=== PATIENT | male | born 1945 | race African-American/Black ===

== ENCOUNTER → 2017-05-07 | Outpatient (CLI) | payer OTHER ==
[~2017-05-07] MED LIST: CARV6.25 PO; LISI10 PO; PHEN100 PO; PHEN60TA PO; TOPI25 PO
[2017-05-07 08:43] LABS: BLOOD, URINE NEG (NEG); GLUCOSE,URINE NEG (NEG); HYALINE CAST, URINE 1 /lpf (RARE); KETONE, URINE NEG (NEG); MUCUS URINE FEW /lpf (OCC); NITRITE,URINE NEG (NEG); SQUAMOUS EPITHELIAL CELL URINE <1 /hpf (0-5); URINE COLOR YELLOW (YELLW/STRAW)
[2017-05-07 08:51] LABS: AUTOMATED NEUTROPHIL # 2.9 TH/MM3 (1.8-7.7); BASOPHIL % 0.6 % (0.0-2.0); EOSINOPHIL # 0.1 TH/MM3 (0-0.4); EOSINOPHIL % 2.5 % (0.0-4.0); HEMATOCRIT 39.3 % (39.0-51.0); HEMO FLAGS DIFF FINAL; LYMPH % 34.3 % (9.0-44.0); LYMPHOCYTE # 1.9 TH/MM3 (1.0-4.8); MEAN CELL VOLUME 90.9 FL (80.0-100.0); MEAN CORPUSCULAR HEMOGLOBIN 30.1 PG (27.0-34.0); MEAN CORPUSCULAR HGB CONC 33.1 % (32.0-36.0); MONO % 10.4 % (0.0-8.0); NEUT % 52.2 % (16.0-70.0); PLATELET COUNT 165 TH/MM3 (150-450); RED BLOOD COUNT 4.32 MIL/MM3 (4.50-5.90); RED CELL DISTRIBUTION WIDTH 14.6 % (11.6-17.2); WHITE BLOOD COUNT 5.6 TH/MM3 (4.0-11.0)
[2017-05-07 09:21] LABS: ANION GAP 7 MEQ/L (5-15); AST (GOT) 13 U/L (15-37); BICARBONATE 25.8 MEQ/L (21.0-32.0); BLOOD UREA NITROGEN 14 MG/DL (7-18); CHLORIDE 106 MEQ/L (98-107); GLOMERULAR FILTRATION RATE 76 ML/MIN (>89); GLUCOSE,FASTING 151 MG/DL (74-99); POTASSIUM 4.2 MEQ/L (3.5-5.1); SODIUM (NA) 139 MEQ/L (136-145)
[2017-05-07 09:31] LABS: ALKALINE PHOSPHATASE 82 U/L (45-117); ALT (GPT) 20 U/L (12-78); HDL CHOLESTEROL 61.1 MG/DL (40.0-60.0); LDL CHOLESTEROL 124 MG/DL (0-99); THYROXINE (T4) 7.4 MCG/DL (4.5-12.1); TOTAL BILIRUBIN ADULT 0.2 MG/DL (0.2-1.0)
== END ==
LOC: CLAB 08:06
PROVIDERS: ATTEND Internal Medicine
DX: I10 Essential (primary) hypertension (principal)
CPT/HCPCS: 36415; 80053; 80061; 80185; 81001; 84436; 84443; 85025

== ENCOUNTER → 2017-05-19 | Outpatient (CLI) | payer OTHER | LOC: CLAB 08:25 | PROVIDERS: ATTEND Internal Medicine | DX: R56.9 Unspecified convulsions (principal) | CPT/HCPCS: 36415; 80185 ==

== ENCOUNTER → 2017-06-05 | Outpatient (CLI) | payer OTHER ==
[2017-06-05 09:29] LABS: ALKALINE PHOSPHATASE 83 U/L (45-117); ALT (GPT) 23 U/L (12-78); PHENOBARBITAL LESS THAN 2.1 MCG/ML (15.0-40.0); TOTAL BILIRUBIN ADULT 0.2 MG/DL (0.2-1.0)
[2017-06-05 09:41] LABS: ANION GAP 8 MEQ/L (5-15); AST (GOT) 19 U/L (15-37); BICARBONATE 23.3 MEQ/L (21.0-32.0); BLOOD UREA NITROGEN 12 MG/DL (7-18); CHLORIDE 108 MEQ/L (98-107); GLOMERULAR FILTRATION RATE 79 ML/MIN (>89); GLUCOSE,FASTING 115 MG/DL (74-99); POTASSIUM 4.1 MEQ/L (3.5-5.1); SODIUM (NA) 139 MEQ/L (136-145)
== END ==
LOC: CLAB 07:56
PROVIDERS: ATTEND Psychiatry & Neurology Neurology
DX: Z79.891 Long term (current) use of opiate analgesic (principal); Z51.81 Encounter for therapeutic drug level monitoring
CPT/HCPCS: 36415; 80053; 80184; 80185; 82607; 82746

== ENCOUNTER 2018-10-27 09:34 | Inpatient (IN) ==
--- NOTE | 2018-10-27 09:59 | CT ---
EXAM DATE: 10/27/2018 9:52 AM EST AGE/SEX: 73 years / Male INDICATIONS: Stroke alert. Receptive aphasia. CLINICAL DATA: This is the patient's initial encounter. Patient reports that signs and symptoms have been present for 1 day and indicates a pain score of 0/10. MEDICAL/SURGICAL HISTORY: Seizures. Aneurysm, intracranial. . Aneurysm clip. RADIATION DOSE: 56.39 CTDI (mGy) COMPARISON: No prior exams available for comparison. TECHNIQUE: CT of the head without contrast. Using automated exposure control and adjustment of the mA and/or kV according to patient size, radiation dose was kept as low as reasonably achievable to ob tain optimal diagnostic quality images. DICOM format image data is available electronically for revi ew and comparison. FINDINGS: There has been previous left parieto-occipital craniotomy with clips or coils noted along the left pa ramedian tentorial edge region. There is some left occipital encephalomalacia area in there is some f ocal hypodensity in the anterior right frontal centrum semiovale which may relate to previous ventric ulostomy tract. There is no evidence of intracranial hemorrhage or mass. There is nothing to suggest acute infarction. The extracranial structures are otherwise unremarkable. CONCLUSION: No definite acute intracranial findings. Report was called by [Yuni Desouza at 0911 Electronically signed by: Brendan Morrissey MD 10/27/2018 9:58 AM EST
--- NOTE | 2018-10-27 10:01 | ED ---
HPI General Chief Complaint: Stroke Alert Stated Complaint: Stroke Alert Time Seen by Provider: 10/27/18 09:40 Source: patient Mode of arrival: ambulatory Limitations: no limitations History of Present Illness HPI Narrative: The patient is a 73-year-old -Thai male who presents to the emergency department via EMS as a possible stroke alert. The patient apparently was at [employer] earlier today eating when he suddenly developed confusion, altered mental status, and appeared to have difficulty ambulating. EMS called a stroke alert in the field. Upon arrival the patient was awake, alert, and oriented. The patient denied any complaints including weakness or numbness. The patient appeared to have slight difficulty comprehending commands , but his stroke scale was 0. The patient does have a previous history of previous aneurysm clipping. The patient denies any headache, chest pain, shortness of breath, nausea, vomiting, or abdominal pain. The patient denies any difficulty with his speech and denies any weakness or numbness of the upper or lower extremities. Patient does note a history of seizures for which he takes Dilantin. Onset (ago): minute(s) Timing confirmed by: other Location: Reports altered History of same: Yes Severity: moderate Quality: Reports weak Relieving factors: none Exacerbating factors: none Context: Reports sudden onset On Anticoagulants: No Associated symptoms: Reports confusion and weakness Treatments Prior to Arrival: Reports none Related Data Home Medications Medication Instructions Recorded Confirmed phenytoin sodium extended 240 mg PO BID 10/27/18 10/27/18 Allergies Allergy/AdvReac Type Severity Reaction Status Date / Time MRI PRECAUTION AdvReac Unknown ANEURYSM Uncoded 10/20/15 14:53 CLIP Review of Systems ROS: all other systems reviewed are negative [facility] Medical History Medical History Seizure (Acute) Surgical History Surgical History History of back surgery (Acute) Social History Social History Second Hand Smoke Exposure: No Smoking Status: Never smoker How Often Do You Have a Drink Containing Alcohol: Never Recent Travel in [facility] within the Last 8 Weeks: No Recent Out of Country Travel within the Last 8 Weeks: No Exam Narrative Exam Narrative: GENERAL: Awake, alert, pleasant 73-year-old male who appears his stated age and is in no acute respiratory distress. SKIN: Focused skin assessment warm/dry. HEAD: Atraumatic. Normocephalic. EYES: Pupils equal and round. 3 mm bilateral and reactive. EOMs are intact. Visual koch are symmetric ENT: No nasal bleeding or discharge. Mucous membranes pink and moist. NECK: Trachea midline. No JVD. CARDIOVASCULAR: Regular rate and rhythm. No murmur appreciated. RESPIRATORY: No accessory muscle use. Clear to auscultation. Breath sounds equal bilaterally. GASTROINTESTINAL: Abdomen soft, non-tender, nondistended. MUSCULOSKELETAL: No obvious deformities. No clubbing. No cyanosis. No edema. NEUROLOGICAL: Awake and alert. No obvious cranial nerve deficits. Motor grossly within normal limits. Normal speech. Patient is oriented to person and place. No dysarthria noted. Some commands had to be repeated for patient to understand, however, he was nonfocal on exam. There is no drift of the upper or lower extremities. Finger to nose is normal. Heel to marlow was normal. He was able to tell me his name, date of , and current location. Sensation was symmetric on the face, arms, and legs. Smile was symmetric. Tongue was midline. Visual koch are symmetric. PSYCHIATRIC: Appropriate mood and affect; insight and judgment normal. Course Initial Documented Vital Signs Temperature 98.5 F 10/27/18 09:38 Pulse Rate 87 10/27/18 09:38 Respiratory Rate 16 10/27/18 09:38 Blood Pressure 228/105 H 10/27/18 09:38 Pulse Oximetry 94 L 10/27/18 09:38 Last Documented Vital Signs Temperature 98.5 F 10/27/18 09:38 Pulse Rate 98 H 10/27/18 13:00 Respiratory Rate 18 10/27/18 13:00 Blood Pressure 240/104 H 10/27/18 13:00 Pulse Oximetry 99 10/27/18 13:00 Critical Care Time Critical Care Time: Yes Total Critical Care Time: 40 Attestation: Aggregate critical care time was 40 minutes. Time to perform other separately billable procedures was not included in the critical care time. My time did not include minutes spent treating any other patients simultaneously or on activities that did not directly contribute to the patient's treatment. The services I provided to this patient were to treat and/or prevent clinically significant deterioration that could result in: Anoxia, hypoxia, seizure, status epilepticus, CVA, intracranial hemorrhage. I provided critical care services requiring my management, as noted below: Chart data review, documentation time, medication orders and management, vital sign assessments/reviewing monitor data, ordering and reviewing lab tests, ordering and interpreting/reviewing x-rays and diagnostic studies, care of the patient and discussion of the patient with the admitting physicians. NIH Stroke Scale NIH Stroke Scale Level of Consciousness: 0-Alert Orientation Questions: 0-Answers both correct Responds to Commands: 0-Both tasks correct Gaze Eye Movement: 0-Horizontal movement WNL Visual Koch: 0-No visual field defect Facial Movement: 0-Normal Motor Functions Arm LEFT: 0-No drift Motor Functions Arm RIGHT: 0-No drift Motor Functions Leg LEFT: 0-No drift Motor Functions Leg RIGHT: 0-No drift Limb Ataxia: 0-No ataxia Sensory Loss: 0-No sensory loss Best Language: 0-Normal Articulation: 0-Normal Extinction or Inattention Sensory: 0-Absent Total: 0 Medical Decision Making MDM Narrative Medical decision making narrative: IV was established, labs are drawn and sent, and the patient was placed on cardiac telemetry monitoring and continuous pulse oximetry monitoring. EKG was ordered and are pretty. The patient was called a stroke alert in the field, therefore, a stroke alert was called. Patient went to CT, reveals old probable aneurysm clipping, no acute findings. The patient stroke scale is 0, he appears to have slight decrease in comprehension of commands, however, when repeated he is able to follow commands and is nonfocal on exam. I do not believe the patient is a candidate for TPA. The patient's blood pressure was elevated with a systolic in the 220s and a diastolic just greater than 100, may be hypertensive urgency/emergency versus Dilantin toxicity versus delirium. The patient was administered Vasotec intravenously. Dilantin level was sent to lab. However, the patient pulled out his IV and nursing staff was unable to obtain the blood work. Vascular access was called to obtain IV access. At 1:30 PM the patient had a tonic-clonic seizure that lasted approximately 60 seconds and then self resolved. The patient's blood pressure was elevated, Cardene was ordered, I had a discussion with the patient regarding admission. Patient appears to have hypertensive encephalopathy with secondary seizure. The patient appear to have another seizure at 3 PM. The patient became tachycardic, had an episode of tonic-clonic activity, then an episode of confusion afterwards where he was nonverbal. This was witnessed by myself as well as the neurologist, Dr. Garcia. The patient's Dilantin level was 10, therefore, the patient was administered fosphenytoin 1 g intravenously. Medical Screen Exam Complete: Yes Emergency Medical Condition: Yes Differential Diagnosis Differential Diagnosis: Differential diagnosis includes CVA, TIA, hypertensive urgency, hypertensive emergency, phenytoin toxicity, hyponatremia, delirium. Lab Data Lab results reviewed: Yes I reviewed the patient's lab results. Result diagrams: 10/27/18 13:44 10/27/18 14:19 Lab Results 10/27/18 10/27/18 10/27/18 Range/Units 09:44 10:42 10:42 WBC (4.0-11.0) th/mm3 RBC (4.50-5.90) mil/mm3 Hgb (13.0-17.0) gm/dL Hct (39.0-51.0) % MCV (80.0-100.0) fL MCH (27.0-34.0) pg MCHC (32.0-36.0) % RDW (11.6-17.2) % Plt Count (150-450) th/mm3 MPV (7.0-11.0) fL WBC Differential Seg Neuts % (Manual) (16-70) % Band Neuts % (Manual) (0-6) % Lymphocytes % (Manual) (9-44) % Monocytes % (Manual) (0-8) % Abs Neuts (Manual) (1.8-7.7) th/mm3 Differential Comment Platelet Estimate (Normal) Platelet Morphology (Normal) PT (9.8-11.6) sec INR Ratio APTT (23.4-31.7) sec Sodium (136-145) meq/L Potassium (3.5-5.1) meq/L Chloride (98-107) meq/L Carbon Dioxide (21.0-32.0) meq/L Anion Gap (5-15) meq/L BUN (7-18) mg/dL Creatinine (0.60-1.30) mg/dL Estimated GFR (>89) mL/min POC Glucose 118 H (68-110) mg/dl Random Glucose (74-106) mg/dL Calcium (8.5-10.1) mg/dL Total Bilirubin (0.2-1.0) mg/dL AST (15-37) U/L ALT (12-78) U/L Alkaline Phosphatase (45-117) U/L Total Creatine Kinase (39-308) U/L Troponin I (0.02-0.05) ng/mL Total Protein (6.4-8.2) g/dL Albumin (3.4-5.0) g/dL Urine Color Straw (Yellw/Straw) Urine Clarity Hazy H (Clear) Urine pH 7.0 (5.0-8.5) Ur Specific [place] 1.009 (1.002-1.035) Urine Protein Negative (Neg-Trace) mg/dL Urine Glucose (UA) Negative (Negative) mg/dL Urine Ketones Negative (Negative) mg/dL Urine Occult Blood Negative (Negative) Urine Nitrate Negative (Negative) Urine Bilirubin Negative (Negative) Urine Urobilinogen Less than 2 (Less than 2) mg/dL Ur Leukocyte Esterase Negative (Negative) Urine RBC 1 (0-3) /hpf Ur Squamous Epith Cells <1 (0-5) /hpf Hyaline Casts 1 (0-3) /lpf Micro UA Comment Cath-culture not ind Ur Microscopic Review Not Reportable Urine Culture Comments Cath-cult not ind Urine Opiates Screen Neg (Neg) Ur Barbiturates Screen Neg (Neg) Phenytoin (10.0-20.0) mcg/mL Ur Amphetamines Screen Neg (Neg) U Benzodiazepines Scrn Neg (Neg) Urine Cocaine Screen Neg (Neg) U Cannabinoids Screen Neg (Neg) Blood Type Antibody Screen 10/27/18 10/27/18 10/27/18 Range/Units 11:13 13:44 13:44 WBC 8.8 (4.0-11.0) th/mm3 RBC 4.00 L (4.50-5.90) mil/mm3 Hgb 13.4 (13.0-17.0) gm/dL Hct 37.3 L (39.0-51.0) % MCV 93.1 (80.0-100.0) fL MCH 33.5 (27.0-34.0) pg MCHC 36.0 (32.0-36.0) % RDW 14.8 (11.6-17.2) % Plt Count 168 (150-450) th/mm3 MPV 6.7 L (7.0-11.0) fL WBC Differential Manual diff final Seg Neuts % (Manual) 77 H (16-70) % Band Neuts % (Manual) 1 (0-6) % Lymphocytes % (Manual) 15 (9-44) % Monocytes % (Manual) 7 (0-8) % Abs Neuts (Manual) 6.9 (1.8-7.7) th/mm3 Differential Comment . Platelet Estimate Normal (Normal) Platelet Morphology Normal (Normal) PT 12.6 H (9.8-11.6) sec INR 1.2 Ratio APTT 31.0 (23.4-31.7) sec Sodium 133 L (136-145) meq/L Potassium 4.4 (3.5-5.1) meq/L Chloride 105 (98-107) meq/L Carbon Dioxide 21.1 (21.0-32.0) meq/L Anion Gap 7 (5-15) meq/L BUN 14 (7-18) mg/dL Creatinine 1.07 (0.60-1.30) mg/dL Estimated GFR 82 L (>89) mL/min POC Glucose (68-110) mg/dl Random Glucose 135 H (74-106) mg/dL Calcium 8.8 (8.5-10.1) mg/dL Total Bilirubin 0.3 (0.2-1.0) mg/dL AST 19 (15-37) U/L ALT 26 (12-78) U/L Alkaline Phosphatase 82 (45-117) U/L Total Creatine Kinase 254 (39-308) U/L Troponin I Less than 0.02 L (0.02-0.05) ng/mL Total Protein 7.6 (6.4-8.2) g/dL Albumin 3.7 (3.4-5.0) g/dL Urine Color (Yellw/Straw) Urine Clarity (Clear) Urine pH (5.0-8.5) Ur Specific [place] (1.002-1.035) Urine Protein (Neg-Trace) mg/dL Urine Glucose (UA) (Negative) mg/dL Urine Ketones (Negative) mg/dL Urine Occult Blood (Negative) Urine Nitrate (Negative) Urine Bilirubin (Negative) Urine Urobilinogen (Less than 2) mg/dL Ur Leukocyte Esterase (Negative) Urine RBC (0-3) /hpf Ur Squamous Epith Cells (0-5) /hpf Hyaline Casts (0-3) /lpf Micro UA Comment Ur Microscopic Review Urine Culture Comments Urine Opiates Screen (Neg) Ur Barbiturates Screen (Neg) Phenytoin (10.0-20.0) mcg/mL Ur Amphetamines Screen (Neg) U Benzodiazepines Scrn (Neg) Urine Cocaine Screen (Neg) U Cannabinoids Screen (Neg) Blood Type Antibody Screen 10/27/18 10/27/18 10/27/18 Range/Units 13:58 14:19 14:19 WBC (4.0-11.0) th/mm3 RBC (4.50-5.90) mil/mm3 Hgb (13.0-17.0) gm/dL Hct (39.0-51.0) % MCV (80.0-100.0) fL MCH (27.0-34.0) pg MCHC (32.0-36.0) % RDW (11.6-17.2) % Plt Count (150-450) th/mm3 MPV (7.0-11.0) fL WBC Differential Seg Neuts % (Manual) (16-70) % Band Neuts % (Manual) (0-6) % Lymphocytes % (Manual) (9-44) % Monocytes % (Manual) (0-8) % Abs Neuts (Manual) (1.8-7.7) th/mm3 Differential Comment Platelet Estimate (Normal) Platelet Morphology (Normal) PT (9.8-11.6) sec INR Ratio APTT (23.4-31.7) sec Sodium 134 L (136-145) meq/L Potassium 4.0 (3.5-5.1) meq/L Chloride 103 (98-107) meq/L Carbon Dioxide 27.8 (21.0-32.0) meq/L Anion Gap 3 L (5-15) meq/L BUN 13 (7-18) mg/dL Creatinine 1.08 (0.60-1.30) mg/dL Estimated GFR 81 L (>89) mL/min POC Glucose (68-110) mg/dl Random Glucose 116 H (74-106) mg/dL Calcium 8.5 (8.5-10.1) mg/dL Total Bilirubin 0.3 (0.2-1.0) mg/dL AST 22 (15-37) U/L ALT 23 (12-78) U/L Alkaline Phosphatase 77 (45-117) U/L Total Creatine Kinase 416 H (39-308) U/L Troponin I 0.02 (0.02-0.05) ng/mL Total Protein 7.2 (6.4-8.2) g/dL Albumin 3.5 (3.4-5.0) g/dL Urine Color (Yellw/Straw) Urine Clarity (Clear) Urine pH (5.0-8.5) Ur Specific [place] (1.002-1.035) Urine Protein (Neg-Trace) mg/dL Urine Glucose (UA) (Negative) mg/dL Urine Ketones (Negative) mg/dL Urine Occult Blood (Negative) Urine Nitrate (Negative) Urine Bilirubin (Negative) Urine Urobilinogen (Less than 2) mg/dL Ur Leukocyte Esterase (Negative) Urine RBC (0-3) /hpf Ur Squamous Epith Cells (0-5) /hpf Hyaline Casts (0-3) /lpf Micro UA Comment Ur Microscopic Review Urine Culture Comments Urine Opiates Screen (Neg) Ur Barbiturates Screen (Neg) Phenytoin 10.0 (10.0-20.0) mcg/mL Ur Amphetamines Screen (Neg) U Benzodiazepines Scrn (Neg) Urine Cocaine Screen (Neg) U Cannabinoids Screen (Neg) Blood Type O Positive Antibody Screen Negative Imaging Data Radiologist's impression: Chest X-Ray 10/27/18 09:40 CONCLUSION: Mild chronic appearing interstitial changes stable compared to prior exam. Head CT 10/27/18 09:40 CONCLUSION: No definite acute intracranial findings. Report was called by [Yuni to Lyly at [id number] Discharge Plan Discharge Disposition Patient Disposition: 30 Still Patient Discharge Condition Condition: Serious Discharge Details Diagnosis: Hypertensive encephalopathy, Seizure Physicians Team ED Provider: Tyron Desouza Primary Care Provider: UNKNOWN, Attending Provider: Demarcus Foley Status ED Status: Admitted Patient
--- NOTE | 2018-10-27 10:17 | XR ---
EXAM DATE: 10/27/2018 10:14 AM EST AGE/SEX: 73 years / Male INDICATIONS: Stroke Alert, short of breath CLINICAL DATA: This is the patient's initial encounter. Patient reports that signs and symptoms have been present for 1 day and indicates a pain score of Nonresponsive. MEDICAL/SURGICAL HISTORY: Aneurysm, intracranial. . aneurysm clip COMPAR[place]: [facility] [place] & [place], 11/25/2012. . FINDINGS: The heart is normal in size. There are chronic appearing interstitial changes within the pulmonary pa renchyma. These are similar to the prior dated 11/25/2012. The visualized bony structures demonstrate degenerative changes but are otherwise intact. CONCLUSION: Mild chronic appearing interstitial changes stable compared to prior exam. Electronically signed by: Jesus Bowman MD 10/27/2018 10:16 AM EST
[2018-10-27] MEDS: Sod Chloride 0.9% Inj 1,000 ML IV.CONT SCH ×2 (10:50→20:16)
[2018-10-27 10:56] LABS: Bilirubin,Urine Negative (Negative); Clarity,Urine Hazy (Clear); Color,Urine Straw (Yellw/Straw); Glucose,Urine (UA) Negative (Negative); Hyaline Casts,Urine 1 /lpf (0-3); Leukocyte Esterase,Urine Negative (Negative); Nitrite,Urine Negative (Negative); Specific Gravity,Urine 1.009 (1.002-1.035); Squamous Epithelial Cell,Urine <1 /hpf (0-5)
[2018-10-27 11:10] LABS: Amphetamine Screen,Urine Neg (Neg); Barbiturate Screen,Urine Neg (Neg); Cannabinoid Screen,Urine Neg (Neg); Cocaine Screen,Urine Neg (Neg)
[2018-10-27 11:12] LABS: Opiate Screen,Urine Neg (Neg)
[2018-10-27 12:01] LABS: Alanine Aminotransferase 26 U/L (12-78); Albumin 3.7 g/dL (3.4-5.0); Anion Gap 7 meq/L (5-15); Aspartate Aminotransferase 19 U/L (15-37); Blood Urea Nitrogen 14 mg/dL (7-18); Calcium 8.8 mg/dL (8.5-10.1); Carbon Dioxide 21.1 meq/L (21.0-32.0); Chloride 105 meq/L (98-107); Glomerular Filtration Rate 82 mL/min (>89); Glucose,Random 135 mg/dL (74-106); Potassium 4.4 meq/L (3.5-5.1); Sodium 133 meq/L (136-145)
[2018-10-27 12:04] LABS: Alkaline Phosphatase 82 U/L (45-117); Creatine Kinase 254 U/L (39-308); Total Protein 7.6 g/dL (6.4-8.2)
[2018-10-27] MEDS: niCARdipine Inj 25 MG in Sodium Chlor 0.9% Inj 240 ML IV.CONT PRN ×2 (13:51→22:22)
[2018-10-27 14:13] LABS: INR 1.2 Ratio; Prothrombin Time 12.6 sec (9.8-11.6)
[2018-10-27 14:44] LABS: Lymphocytes 15 % (9-44); Monocytes 7 % (0-8); Platelet Estimate Normal (Normal); Platelet Morphology Normal (Normal)
[2018-10-27 14:53] LABS: Alanine Aminotransferase 23 U/L (12-78); Albumin 3.5 g/dL (3.4-5.0); Anion Gap 3 meq/L (5-15); Aspartate Aminotransferase 22 U/L (15-37); Blood Urea Nitrogen 13 mg/dL (7-18); Calcium 8.5 mg/dL (8.5-10.1); Carbon Dioxide 27.8 meq/L (21.0-32.0); Chloride 103 meq/L (98-107); Glomerular Filtration Rate 81 mL/min (>89); Glucose,Random 116 mg/dL (74-106); Sodium 134 meq/L (136-145)
[2018-10-27 14:55] LABS: Alkaline Phosphatase 77 U/L (45-117); Creatine Kinase 416 U/L (39-308); Total Protein 7.2 g/dL (6.4-8.2); Troponin I 0.02 ng/mL (0.02-0.05)
[2018-10-27] MEDS ORDERED: Bisacodyl 10 MG Supp RECTAL PRN (15:00)
[2018-10-27] MEDS ORDERED: Morphine Sulfate Inj 2 MG/ML Vial IV.PUSH PRN (15:00)
[2018-10-27] MEDS ORDERED: Acetaminophen 325 MG Tablet PO PRN (15:00)
[2018-10-27] MEDS ORDERED: Fosphenytoin Inj 1,000 MGPE in Sodium Chlor 0.9% Inj 50 ML IV.SIG ONE (15:01)
[2018-10-27 15:08] LABS: CKMB Percent 0.4 % (0.0-4.0); Creatine Kinase MB 1.7 ng/mL (0.5-3.6)
[2018-10-27] MEDS ORDERED: Labetalol HCl Inj 100 MG/20 ML Vial IV.PUSH PRN (15:13)
[2018-10-27] MEDS ORDERED: hydrALAZINE HCl Inj 20 MG/ML Vial IV.PUSH PRN (15:14)
--- NOTE | 2018-10-27 15:17 | P.HPCC ---
History of Present Illness Service: Critical care medicine Primary Care Physician: UNKNOWN Chief Complaint: Left-sided weakness/acute hypertensive encephalopathy History of Present Illness: This is a 73-year-old AA male. Date of admission 10/27/2018. 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 Patient is currently on Dilantin 240 mg twice daily. Patient presented to [facility] today from [facility] as a stroke alert. Today, the patient was at [facility] consuming hamburgers when he suddenly developed confusion, altered mental status, and appeared to have difficulty ambulating. EMS called a stroke alert in the field. Upon arrival the patient was awake, alert, and oriented. The patient denied any complaints including weakness or numbness. The patient appeared to have slight difficulty comprehending commands, but his stroke scale was 0. 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 The patient denies any headache, chest pain, shortness of breath, nausea, vomiting, or abdominal pain. The patient denies any difficulty with his speech and denies any weakness or numbness of the upper or lower extremities. Patient does note a history of seizures for which he takes Dilantin. CT brain revealed signs of a left posterior occipital craniotomy with encephalomalacia involving the left occipital region. Encephalomalacia in the left paramedial tentorium. Right frontal region reveals a slight of possible prior ventriculostomy. No signs of acute CVA. Patient was noted to be quite hypertensive with a systolic blood pressure in the 240s. Subjective left-sided which patient had a witnessed seizure in the ED which resolved on its own. Patient is chronically on fosphenytoin level was 10. Patient was started on nicardipine drip and his confusion is improved. NIH score is still 0. Inpatient Certification: I certify that the inpatient services were ordered in accordance with Medicare regulations governing the order. This includes certification that hospital inpatient services are reasonable and necessary and in the case of services not specified as inpatient-only under 42 CFR 419.22(n), that they are appropriately provided as inpatient services in accordance to with the 2-midnight benchmark under 43 CFR 412.3(e) Estimated Total Length of Stay (Days): 3 Plans for Post Hospital Care: Home Review of Systems Constitutional: Denies anorexia, Denies body ache(s), Denies chills Eyes: Denies blind spots, Denies blurry vision, Denies bulging eyes Ears, Nose, Mouth, and Throat: Reports bad breath, Denies abnormal hearing, Denies bleeding gums, Denies change in voice, Denies dry mouth Cardiovascular: Denies chest pain, Denies chest pain at rest, Denies chest pain with activity Respiratory: Denies shortness of breath, Denies shortness of breath with activity Gastrointestinal: Denies abdominal pain Genitourinary: Denies urinary hesitancy Musculoskeletal: Denies abnormal walking, Denies back pain Skin/Breast: Denies bleeding lesions Neurologic: Reports seizure-like activity, Denies abnormal hearing, Denies abnormal movements, Denies memory loss, Denies tingling, Denies tremor(s) Psychiatric: Reports confusion, Denies abnormal sleep pattern, Denies anxiety Endocrine: Denies cold intolerance, Denies excessive sweating Hematologic/Lymphatic: Denies easy bleeding Allergic/Immunologic: Denies GI upset with certain foods PMFSH - History History Provided By: Patient, Labor Relations Consultant / EMT - Medical History Medical History: Medical History (Last Updated 10/27/18 @ 15:11 by Sean Ackerman MD) BMI 32.0-32.9,adult Hypertensive encephalopathy Seizure - Surgical History Surgical History: Surgical History (Last Updated 10/27/18 @ 15:09 by Sean Ackerman MD) History of back surgery History of craniotomy - Family History Family History: Family History (Last Updated 10/27/18 @ 15:10 by Sean Ackerman MD) Other No pertinent family history - Social History I have reviewed the patient's Social History: Yes - Tobacco History Second Hand Smoke Exposure: No Smoking Status: Never smoker - Alcohol History How Often Do You Have a Drink Containing Alcohol: Never - Travel History Recent Travel in the [place] Within the Last 8 Weeks: No Recent Travel Out of the Country Within the Last 8 Weeks: No - Immunization History Tetanus Immunization: Unsure Medications and Allergies Active Medications: Active Medications Acetaminophen (Tylenol) 650 mg PO Q6H PRN PRN Reason: Fever >100f Hydrocodone Bitart/Acetaminophen ([place] 5/325) 1 tab PO Q4H PRN PRN Reason: PAIN SCALE 1 TO 5 Al Hydroxide/Mg Hydroxide (Milk Of Magnesia Liq) 30 ml PO Q12H PRN PRN Reason: Mild Constipation Albuterol (Albuterol Neb (Prn)) 2.5 mg NEB Q2HR NEB PRN PRN Reason: SHORTNESS OF BREATH/WHEEZING Albuterol (Duoneb Neb ([place])) 1 ampul NEB Q4HR NEB GAL[place]O Amlodipine Besylate (Norvasc) 5 mg PO DAILY G[place]ILEO Bisacodyl (Dulcolax Supp) 10 mg RECTAL DAILY PRN PRN Reason: SEVERE CONSITIPATION Chlorhexidine Gluconate (Chlorhexidine 2% Cloth) 3 pack TOPICAL DAILY@0400 [place] Stop: 11/02/18 03:59 Chlorhexidine Gluconate (Chlorhexidine 2% Cloth) 3 pack TOPICAL DAILY@0400 PRN PRN Reason: Extra cloth needed Stop: 11/02/18 03:59 Clonidine HCl (Catapres) 0.1 mg PO Q6H PRN PRN Reason: Sbp>170, Dbp>100, Hr>65 Hydralazine HCl (Apresoline Inj) 10 mg IV.PUSH Q1H PRN PRN Reason: Sbp> Or = 170, Dbp> Or = 100 Sodium Chloride (Ns Inj) 1,000 mls @ 70 mls/hr IV.CONT .[id number] [facility] Last Admin: 10/27/18 10:50 Dose: 70 mls/hr Nicardipine HCl 25 mg/ Sodium (Chloride) 250 mls @ 50 mls/hr IV.CONT TITRATE PRN; Protocol PRN Reason: Per Protocol Last Admin: 10/27/18 13:51 Dose: 5 mg/hr, 50 mls/hr Sodium Chloride (Ns Inj) 1,000 mls @ 84 mls/hr IV.CONT .[id number] [facility] Fosphenytoin Sodium 100 mgpe/ (Sodium Chloride) 52 mls @ 208 mls/hr IV.SIG Q8HR [facility] Fosphenytoin Sodium 200 mgpe/ (Sodium Chloride) 54 mls @ 216 mls/hr IV.SIG ONCE ONE Stop: 10/27/18 15:14 Labetalol HCl (Trandate Inj) 10 mg IV.PUSH Q1H PRN PRN Reason: Sbp>170, Dbp>100, Hr>65 Lactulose (Lactulose Liq) 30 ml PO DAILY PRN PRN Reason: SEVERE CONSITIPATION Morphine Sulfate (Morphine Inj) 2 mg IV.PUSH Q2H PRN PRN Reason: PAIN SCALE 6 TO 10 Ondansetron HCl (Zofran Inj) 4 mg IV.PUSH Q6H PRN PRN Reason: NAUSEA OR VOMITING Pantoprazole Sodium (Protonix) 40 mg PO DAILY G[place]ILEO Senna/Docusate Sodium (Fatemeh-Colace) 1 tab PO BID [place] Sennosides (Senokot) 17.2 mg PO Q12H PRN PRN Reason: Moderate Constipation Sodium Chloride (Ns Flush) 2 ml IV.FLUSH BID [place] Sodium Chloride (Ns Flush) 2 ml IV.FLUSH PRN PRN PRN Reason: FLUSH AFTER USING IV ACCESS Allergies Allergy/AdvReac Type Severity Reaction Status Date / Time MRI PRECAUTION AdvReac Unknown ANEURYSM Uncoded 10/20/15 14:53 CLIP Home Medications Medication Instructions Recorded Confirmed Type phenytoin sodium extended 240 mg PO BID 10/27/18 10/27/18 History Results - Labs CBC & Chem 7: 10/27/18 13:44 10/27/18 14:19 Labs: Short CBC 10/27/18 Range/Units 13:44 WBC 8.8 (4.0-11.0) th/mm3 Hgb 13.4 (13.0-17.0) gm/dL Hct 37.3 L (39.0-51.0) % Plt Count 168 (150-450) th/mm3 [facility] 10/27/18 10/27/18 11:13 14:19 Sodium 133 L 134 L Potassium 4.4 4.0 Chloride 105 103 Carbon Dioxide 21.1 27.8 BUN 14 13 Creatinine 1.07 1.08 Calcium 8.8 8.5 Cardiac Enzymes 10/27/18 10/27/18 Range/Units 11:13 14:19 Total Creatine Kinase 254 416 H (39-308) U/L CK-MB (CK-2) 1.7 (0.5-3.6) ng/mL Troponin I Less than 0.02 L 0.02 (0.02-0.05) ng/mL Liver Function 10/27/18 10/27/18 Range/Units 11:13 14:19 Total Bilirubin 0.3 0.3 (0.2-1.0) mg/dL AST 19 22 (15-37) U/L ALT 26 23 (12-78) U/L Alkaline Phosphatase 82 77 (45-117) U/L Albumin 3.7 3.5 (3.4-5.0) g/dL Urine 10/27/18 Range/Units 10:42 Urine Color Straw (Yellw/Straw) Urine Clarity Hazy H (Clear) Urine pH 7.0 (5.0-8.5) Ur Specific [place] 1.009 (1.002-1.035) Urine Protein Negative (Neg-Trace) mg/dL Urine Glucose (UA) Negative (Negative) mg/dL - Imaging Impressions Chest X-Ray 10/27/18 09:40 CONCLUSION: Mild chronic appearing interstitial changes stable compared to prior exam. Head CT 10/27/18 09:40 CONCLUSION: No definite acute intracranial findings. Report was called by [Yuni Desouza at 0955 Exam Vital signs: Vital Signs 10/27/18 09:38 10/27/18 09:40 10/27/18 10:30 Temperature 98.5 F Pulse Rate 87 62 Respiratory Rate 16 16 Blood Pressure 228/105 H 223/100 H Pulse Oximetry 94 L 97 97 10/27/18 11:00 10/27/18 12:00 10/27/18 13:00 Temperature Pulse Rate 84 90 98 H Respiratory Rate 18 18 Blood Pressure 182/100 H 224/107 H 240/104 H Pulse Oximetry 99 99 Intake & Output 10/26/18 10/27/18 10/27/18 18:59 06:59 18:59 Weight 93.4 kg - Constitutional no acute distress - Routine HEENT Exam Head: Present: atraumatic. Absent: normocephalic Eye: Present: EOMI, PERRL, normal accommodation ENT: Present: mucous membranes moist - Routine Neck Exam Present: supple, full ROM. Absent: JVD - Routine Chest/Breast/Axilla Exam Chest wall: Absent: tenderness Breast: Absent: tenderness Axillae: Absent: lymphadenopathy - Routine Respiratory Exam Present: CTA bilaterally. Absent: accessory muscle use - Routine Cardiovascular Exam Present: RRR, S1, S2. Absent: murmur - Routine Abdominal Exam Present: soft, normoactive bowel sounds - Routine Extremities Exam Absent: cyanosis, clubbing, edema - Routine Skin Exam Present: intact - Routine Neurological Exam Present: alert, oriented X3, CN II-XII intact. Absent: sensory deficit, motor deficit Septic Shock Reassessment Septic shock perfusion: reassessment completed Caprini VTE Risk Assessment Caprini VTE Risk Assessment: Moderate/High Risk (score >= 2) VTE Pharmacological Exception Reason: Hemorrhage Caprini Risk Assessment Model: Point Value = 1 Point Value = 2 Point Value = 3 Point Value = 5 Age 41-60 Minor surgery BMI > 25 kg/m2 Swollen legs Varicose veins or History of unexplained or recurrent spontaneous Oral contraceptives or hormone replacement Sepsis (< 1 month) Serious lung disease, including pneumonia (< 1 month) Abnormal pulmonary function Acute myocardial infarction Congestive heart failure (< 1 month) History of inflammatory bowel disease Medical patient at bed rest Age 61-74 Arthroscopic surgery Major open surgery (> 45 min) Laparoscopic surgery (> 45 min) Malignancy Confined to bed (> 72 hours) Immobilizing plaster cast Central venous access Age >= 75 History of VTE Family history of VTE Factor V Leiden Prothrombin [id number] Lupus anticoagulant Anticardiolipin antibodies Elevated serum homocysteine Heparin-induced thrombocytopenia Other congenital or acquired thrombophilia Stroke (< 1 month) Elective arthroplasty Hip, pelvis, or leg fracture Acute spinal cord injury (< 1 month) Prophylaxis Regimen: Total Risk Factor Score Risk Level Prophylaxis Regimen 0-1 Low Early ambulation 2 Moderate Order ONE of the following: *Sequential Compression Device (SCD) *Heparin 5000 units SQ BID 3-4 Higher Order ONE of the following medications: *Heparin 5000 units SQ TID *Enoxaparin/Lovenox 40 mg SQ daily (WT < 150 kg, CrCl > 30 mL/min) *Enoxaparin/Lovenox 30 mg SQ daily (WT < 150 kg, CrCl > 10-29 mL/min) *Enoxaparin/Lovenox 30 mg SQ BID (WT < 150 kg, CrCl > 30 mL/min) AND/OR *Sequential Compression Device (SCD) 5 or more Highest Order ONE of the following medications: *Heparin 5000 units SQ TID (Preferred with Epidurals) *Enoxaparin/Lovenox 40 mg SQ daily (WT < 150 kg, CrCl > 30 mL/min) *Enoxaparin/Lovenox 30 mg SQ daily (WT < 150 kg, CrCl > 10-29 mL/min) *Enoxaparin/Lovenox 30 mg SQ BID (WT < 150 kg, CrCl > 30 mL/min) AND *Sequential Compression Device (SCD) Assessment and Plan - Assessment and Plan Plan: Neuro/Psych: 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 Right frontal anterior ventriculostomy deck for more site questionable. Signs of left occipital encephalomalacia. Phenytoin level was 10. On 240 mg twice daily at home. See cardiovascular for blood pressure control. Seizure precautions Will bolus fosphenytoin 200 mg x1 now. Start on 100 mg IV 3 times daily. Check phenytoin level in a.m. EEG ordered Unable to do MRI due to prior aneurysm clippings CV: Hypertensive emergency On no home antihypertensive medications. EKG unremarkable for ST elevation. Received 1 dose of enalaprilat in ED 2.5 mg. Currently nicardipine drip goal to keep systolic blood pressure l decrease 25% admission for systolic blood pressure. Goal systolic blood pressure around 170. As needed labetalol, hydralazine, clonidine attempt to wean. Start amlodipine 5 mg daily in a.m. Check 2D echocardiogram for hypertensive heart disease Resp: Nasal cannula to maintain saturations greater than equal to 92% Incentive spirometry while awake As needed albuterol aerosols every 2 hours as needed GI: Okay to start on cardiac diet Pantoprazole for GI prophylaxis Docusate sodium/senna 1 tablet twice daily for bowel regimen : Straight catheterization as needed Endo: Sliding scale insulin as indicated to maintain euglycemia Check TSH Renal: Creatinine currently within normal limit Monitor urine output Accurate I's and O's Heme: CBC within normal limits No indication for transfusion of blood products at this time ID: Monitor for signs and symptomatology infection FEN: Replace electrolytes as clinically indicated MSK: BMI 32. PT evaluate and treat Weight loss encouraged Access -Utilize peripheral IV. Central line if indicated Prophylaxis -GI -pantoprazole -DVT-SCD/holding pharmacologic prophylaxis in light of seizures Level 3 H&P Code Status: Full code Discussed Condition With: Dr. Desouza/ED physician. Patient. Care plan discussed and all questions answered.
[2018-10-27] MEDS ORDERED: Fosphenytoin Inj 200 MGPE in Sodium Chlor 0.9% Inj 50 ML IV.SIG ONE (16:00)
--- NOTE | 2018-10-27 16:28 | P.CONNEU ---
History of Present Illness Service: Neurology Primary Care Provider: UNKNOWN Chief Complaint: Left-sided weakness/acute hypertensive encephalopathy History of Present Illness: 73-year-old male admitted for acute confusion. Onset not entirely clear waxing waning course. Patient on Dilantin history of previous aneurysm. CT brain scan did not show any acute lesion. Dilantin level noted be 10. Had episode of worsening confusion not being able to understand moving his arms and legs looking around the room his heart rate went up into the 120s his blood pressure 100. He then had a little bit of right gaze preference. Suspect this is seizures given Ativan and also additional doses of IV Celebrex. He was similar presentation in 2015 at that time was noted to have seizure activity. Review of Systems All other systems reviewed negative except as stated in HPI [facility] - History History Provided By: Patient, Accounts Payable Specialist / EMT - Medical History Medical History: Medical History (Last Updated 10/27/18 @ 15:11 by Sean Ackerman MD) BMI 32.0-32.9,adult Hypertensive encephalopathy Seizure - Surgical History Surgical History: Surgical History (Last Updated 10/27/18 @ 15:09 by Sean Ackerman MD) History of back surgery History of craniotomy - Family History Family History: Family History (Last Updated 10/27/18 @ 15:10 by Sean Ackerman MD) Other No pertinent family history - Tobacco History Second Hand Smoke Exposure: No Smoking Status: Never smoker - Alcohol History How Often Do You Have a Drink Containing Alcohol: Never - Travel History Recent Travel in the [place] Within the Last 8 Weeks: No Recent Travel Out of the Country Within the Last 8 Weeks: No - Immunization History Tetanus Immunization: Unsure Medications and Allergies Active Medications: Active Medications Acetaminophen (Tylenol) 650 mg PO Q6H PRN PRN Reason: Fever >100f Hydrocodone Bitart/Acetaminophen ([place] 5/325) 1 tab PO Q4H PRN PRN Reason: PAIN SCALE 1 TO 5 Al Hydroxide/Mg Hydroxide (Milk Of Magnesia Liq) 30 ml PO Q12H PRN PRN Reason: Mild Constipation Albuterol (Albuterol Neb (Prn)) 2.5 mg NEB Q2HR NEB PRN PRN Reason: SHORTNESS OF BREATH/WHEEZING Albuterol (Duoneb Neb ([place])) 1 ampul NEB Q4HR NEB [place] Last Admin: 10/27/18 15:33 Dose: 1 ampul Amlodipine Besylate (Norvasc) 5 mg PO DAILY [facility] Bisacodyl (Dulcolax Supp) 10 mg RECTAL DAILY PRN PRN Reason: SEVERE CONSITIPATION Chlorhexidine Gluconate (Chlorhexidine 2% Cloth) 3 pack TOPICAL DAILY@0400 [place] Stop: 11/02/18 03:59 Chlorhexidine Gluconate (Chlorhexidine 2% Cloth) 3 pack TOPICAL DAILY@0400 PRN PRN Reason: Extra cloth needed Stop: 11/02/18 03:59 Clonidine HCl (Catapres) 0.1 mg PO Q6H PRN PRN Reason: Sbp>170, Dbp>100, Hr>65 Hydralazine HCl (Apresoline Inj) 10 mg IV.PUSH Q1H PRN PRN Reason: Sbp> Or = 170, Dbp> Or = 100 Sodium Chloride (Ns Inj) 1,000 mls @ 70 mls/hr IV.CONT .[id number] [facility] Last Admin: 10/27/18 10:50 Dose: 70 mls/hr Nicardipine HCl 25 mg/ Sodium (Chloride) 250 mls @ 50 mls/hr IV.CONT TITRATE PRN; Protocol PRN Reason: Per Protocol Last Admin: 10/27/18 13:51 Dose: 5 mg/hr, 50 mls/hr Sodium Chloride (Ns Inj) 1,000 mls @ 84 mls/hr IV.CONT .[id number] [facility] Fosphenytoin Sodium 150 mgpe/ (Sodium Chloride) 53 mls @ 208 mls/hr IV.SIG Q8HR [place] Labetalol HCl (Trandate Inj) 10 mg IV.PUSH Q1H PRN PRN Reason: Sbp>170, Dbp>100, Hr>65 Lactulose (Lactulose Liq) 30 ml PO DAILY PRN PRN Reason: SEVERE CONSITIPATION Morphine Sulfate (Morphine Inj) 2 mg IV.PUSH Q2H PRN PRN Reason: PAIN SCALE 6 TO 10 Ondansetron HCl (Zofran Inj) 4 mg IV.PUSH Q6H PRN PRN Reason: NAUSEA OR VOMITING Pantoprazole Sodium (Protonix) 40 mg PO DAILY [facility] Senna/Docusate Sodium (Fatemeh-Colace) 1 tab PO BID [facility] Sennosides (Senokot) 17.2 mg PO Q12H PRN PRN Reason: Moderate Constipation Sodium Chloride (Ns Flush) 2 ml IV.FLUSH BID [place] Sodium Chloride (Ns Flush) 2 ml IV.FLUSH PRN PRN PRN Reason: FLUSH AFTER USING IV ACCESS Allergies Allergy/AdvReac Type Severity Reaction Status Date / Time MRI PRECAUTION AdvReac Unknown ANEURYSM Uncoded 10/20/15 14:53 CLIP Home Medications Medication Instructions Recorded Confirmed Type phenytoin sodium extended 240 mg PO BID 10/27/18 10/27/18 History Exam Vital signs: Vital Signs 10/27/18 09:38 10/27/18 09:40 10/27/18 10:30 Temperature 98.5 F Pulse Rate 87 62 Respiratory Rate 16 16 Blood Pressure 228/105 H 223/100 H Pulse Oximetry 94 L 97 97 10/27/18 11:00 10/27/18 12:00 10/27/18 13:00 Temperature Pulse Rate 84 90 98 H Respiratory Rate 18 18 Blood Pressure 182/100 H 224/107 H 240/104 H Pulse Oximetry 99 99 10/27/18 14:00 10/27/18 15:35 Temperature Pulse Rate 82 97 H Respiratory Rate 16 16 Blood Pressure 185/77 H Pulse Oximetry 99 Intake & Output 10/26/18 10/27/18 10/27/18 18:59 06:59 18:59 Intake Total 70 / 70 Output Total 500 / 500 Balance -430 / -430 Weight 93.4 kg Intake: IV 70 / 70 Cerebyx Inj 1,000 MGPE In NS 70 / 70 Inj 50 ML @ 280 mls/hr IV.SIG ONCE ONE Rx#:[id number] Output: Urine 500 / 500 Narrative: GENERAL: in NAD, SKIN: Warm and dry. HEAD: Atraumatic. Normocephalic. EYES: Pupils equal and round. No scleral icterus. ENT: No nasal bleeding or discharge. NECK: Trachea midline. No JVD. CARDIOVASCULAR: Regular rate and rhythm. RESPIRATORY: No accessory muscle use. GASTROINTESTINAL: Abdomen soft, non-tender, nondistended. MUSCULOSKELETAL: Extremities without clubbing, cyanosis, or edema. No obvious deformities. NEUROLOGICAL: Awake alert, appears to respond his name at times, otherwise looking around the room blink to threat intact OU 3 2 mm, asymmetric no involuntary movements moving all 4 extremities to gravity without any difficulty gait not assessed secondary to fall risk no nuchal rigidity appreciated PSYCHIATRIC: Confused - Constitutional no acute distress - Routine HEENT Exam Head: Present: normocephalic Eye: Present: EOMI Results - Labs CBC & Chem 7: 10/27/18 13:44 10/27/18 14:19 Labs: Laboratory Results - last 24 hr 10/27/18 10/27/18 10/27/18 09:44 10:42 10:42 WBC RBC Hgb Hct MCV MCH MCHC RDW Plt Count MPV WBC Differential Seg Neuts % (Manual) Band Neuts % (Manual) Lymphocytes % (Manual) Monocytes % (Manual) Abs Neuts (Manual) Differential Comment Platelet Estimate Platelet Morphology PT INR APTT Sodium Potassium Chloride Carbon Dioxide Anion Gap BUN Creatinine Estimated GFR POC Glucose 118 H Random Glucose Calcium Total Bilirubin AST ALT Alkaline Phosphatase Total Creatine Kinase CK-MB (CK-2) CK-MB (CK-2) % Troponin I Total Protein Albumin Urine Color Straw Urine Clarity Hazy H Urine pH 7.0 Ur Specific [place] 1.009 Urine Protein Negative Urine Glucose (UA) Negative Urine Ketones Negative Urine Occult Blood Negative Urine Nitrate Negative Urine Bilirubin Negative Urine Urobilinogen Less than 2 Ur Leukocyte Esterase Negative Urine RBC 1 Ur Squamous Epith Cells <1 Hyaline Casts 1 Micro UA Comment Cath-culture not ind Ur Microscopic Review Not Reportable Urine Culture Comments Cath-cult not ind Urine Opiates Screen Neg Ur Barbiturates Screen Neg Phenytoin Ur Amphetamines Screen Neg U Benzodiazepines Scrn Neg Urine Cocaine Screen Neg U Cannabinoids Screen Neg Blood Type Antibody Screen 10/27/18 10/27/18 10/27/18 11:13 13:44 13:44 WBC 8.8 RBC 4.00 L Hgb 13.4 Hct 37.3 L MCV 93.1 MCH 33.5 MCHC 36.0 RDW 14.8 Plt Count 168 MPV 6.7 L WBC Differential Manual diff final Seg Neuts % (Manual) 77 H Band Neuts % (Manual) 1 Lymphocytes % (Manual) 15 Monocytes % (Manual) 7 Abs Neuts (Manual) 6.9 Differential Comment . Platelet Estimate Normal Platelet Morphology Normal PT 12.6 H INR 1.2 APTT 31.0 Sodium 133 L Potassium 4.4 Chloride 105 Carbon Dioxide 21.1 Anion Gap 7 BUN 14 Creatinine 1.07 Estimated GFR 82 L POC Glucose Random Glucose 135 H Calcium 8.8 Total Bilirubin 0.3 AST 19 ALT 26 Alkaline Phosphatase 82 Total Creatine Kinase 254 CK-MB (CK-2) CK-MB (CK-2) % Troponin I Less than 0.02 L Total Protein 7.6 Albumin 3.7 Urine Color Urine Clarity Urine pH Ur Specific [place] Urine Protein Urine Glucose (UA) Urine Ketones Urine Occult Blood Urine Nitrate Urine Bilirubin Urine Urobilinogen Ur Leukocyte Esterase Urine RBC Ur Squamous Epith Cells Hyaline Casts Micro UA Comment Ur Microscopic Review Urine Culture Comments Urine Opiates Screen Ur Barbiturates Screen Phenytoin Ur Amphetamines Screen U Benzodiazepines Scrn Urine Cocaine Screen U Cannabinoids Screen Blood Type Antibody Screen 10/27/18 10/27/18 10/27/18 13:58 14:19 14:19 WBC RBC Hgb Hct MCV MCH MCHC RDW Plt Count MPV WBC Differential Seg Neuts % (Manual) Band Neuts % (Manual) Lymphocytes % (Manual) Monocytes % (Manual) Abs Neuts (Manual) Differential Comment Platelet Estimate Platelet Morphology PT INR APTT Sodium 134 L Potassium 4.0 Chloride 103 Carbon Dioxide 27.8 Anion Gap 3 L BUN 13 Creatinine 1.08 Estimated GFR 81 L POC Glucose Random Glucose 116 H Calcium 8.5 Total Bilirubin 0.3 AST 22 ALT 23 Alkaline Phosphatase 77 Total Creatine Kinase 416 H CK-MB (CK-2) 1.7 CK-MB (CK-2) % 0.4 Troponin I 0.02 Total Protein 7.2 Albumin 3.5 Urine Color Urine Clarity Urine pH Ur Specific [place] Urine Protein Urine Glucose (UA) Urine Ketones Urine Occult Blood Urine Nitrate Urine Bilirubin Urine Urobilinogen Ur Leukocyte Esterase Urine RBC Ur Squamous Epith Cells Hyaline Casts Micro UA Comment Ur Microscopic Review Urine Culture Comments Urine Opiates Screen Ur Barbiturates Screen Phenytoin 10.0 Ur Amphetamines Screen U Benzodiazepines Scrn Urine Cocaine Screen U Cannabinoids Screen Blood Type O Positive Antibody Screen Negative - Imaging Impressions Chest X-Ray 10/27/18 09:40 CONCLUSION: Mild chronic appearing interstitial changes stable compared to prior exam. Head CT 10/27/18 09:40 CONCLUSION: No definite acute intracranial findings. Report was called by Ashlee Desouza at 0955 Review/Management - Diagnosis (1) Cerebral aneurysm Code(s): I67.1 - Cerebral aneurysm, nonruptured Status: Acute Current Visit : Yes (2) Hypertensive encephalopathy Code(s): I67.4 - Hypertensive encephalopathy Status: Acute Current Visit: Yes (3) Seizure Code(s): R56.9 - Unspecified convulsions Status: Acute Current Visit: Yes - Review/Management Plan: Confusional episode Suspected left hemispheric seizures. Similar presentation in 2014 that time patient was having 6 seizures emanating from the left posterior hemisphere Urine drug screen negative. Glucose greater than 100 Recommendation Loaded IV Celebrex We will add IV phenobarbital Follow-up EEG Follow exam Blood pressure control Seizure fall precautions No driving, operating any heavy machinery or dangerous machinery, swimming alone for at least 6 months of being seizure, spell free.
[2018-10-27] MEDS ORDERED: PHENobarbital Inj 130 MG/ML Vial IM SCH (17:00)
[2018-10-27] MEDS ORDERED: PHENobarbital Inj 130 MG/ML Vial IV.PUSH SCH (18:00)
[2018-10-27 18:23] LABS: Phenytoin (Dilantin) 10.4 mcg/mL (10.0-20.0)
--- NOTE | 2018-10-27 19:56 | ECHRPT ---
Indication: Hypertensive Heart Disease CONCLUSIONS Normal left ventricular size. Wall thickness is measured at the upper limits of normal. The left ventricular systolic function is normal with an estimated ejection fraction in the range of 55-60%. Trace mitral valve regurgitation. Aortic valve sclerosis is present. Mild aortic valve regurgitation. BP: 186 / 91 HR: 95 Rhythm: MEASUREMENTS (Male / Female) Normal Values Technical Quality:Poor 2D ECHO LV Diastolic Diameter PLAX 4.1 cm 4.2 - 5.9 / 3.9 - 5.3 cm LV Systolic Diameter PLAX 3.1 cm IVS Diastolic Thickness 1.0 cm 0.6 - 1.0 / 0.6 - 0.9 cm LVPW Diastolic Thickness 1.1 cm 0.6 - 1.0 / 0.6 - 0.9 cm LV Relative Wall Thickness 0.5 RV Internal Dim ED PLAX 3.0 cm LVOT Diameter 2.1 cm Aortic Root Diameter 3.2 cm LA Systolic Diameter LX 2.7 cm 3.0 - 4.0 / 2.7 - 3.8 cm DOPPLER AV Peak Velocity 185.0 cm/s AV Peak Gradient 13.7 mmHg AI Peak Velocity 472.5 cm/s AI Peak Gradient 89.3 mmHg AI Pressure Half Time 499.5 ms LVOT Peak Velocity 146.0 cm/s LVOT Peak Gradient 8.5 mmHg AV Area Cont Eq pk 2.7 cm Mitral E Point Velocity 65.6 cm/s Mitral A Point Velocity 114.0 cm/s Mitral E to A Ratio 0.6 LV E' Lateral Velocity 6.6 cm/s Mitral E to LV E' Lateral Ratio 9.9 LV E' Septal Velocity 7.1 cm/s Mitral E to LV E' Septal Ratio 9.2 TR Peak Velocity 119.0 cm/s TR Peak Gradient 5.7 mmHg Right Atrial Pressure 5.0 mmHg Pulmonary Artery Systolic Pressu 10.7 mmHg Right Ventricular Systolic Press 10.7 mmHg PV Peak Velocity 119.0 cm/s PV Peak Gradient 5.7 mmHg FINDINGS LEFT VENTRICLE Normal left ventricular size. Wall thickness is measured at the upper limits of normal. The left ventricular systolic function is normal with an estimated ejection fraction in the range of 55-60%. No regional wall motion abnormalities are present. RIGHT VENTRICLE Normal right ventricular size and systolic function. LEFT ATRIUM The left atrial size is normal. RIGHT ATRIUM The right atrial size is normal. ATRIAL SEPTUM Normal atrial septal thickness without atrial level shunting by limited color doppler interrogation. AORTA The aortic root and proximal ascending aorta are normal in size on limited imaging. MITRAL VALVE Mild thickening of the mitral valve leaflets. Trace mitral valve regurgitation. AORTIC VALVE Aortic valve sclerosis is present. Trileaflet aortic valve. Mild aortic valve regurgitation. TRICUSPID VALVE Structurally normal tricuspid valve. No tricuspid valve stenosis or regurgitation. PULMONARY VALVE No pulmonary valve regurgitation or stenosis. VESSELS The inferior vena cava is normal in size. PERICARDIUM No pericardial effusion. Diaz Dorman (Electronically Signed) Final Date:27 October 2018 19:55
[2018-10-27 20:07] LABS: Baso # (Auto) 0.1 th/mm3 (0.0-0.2); Baso % (Auto) 0.7 % (0.0-2.0); Eos # (Auto) 0.1 th/mm3 (0.0-0.4); Eos % (Auto) 0.7 % (0.0-4.0); Lymph # (Auto) 1.5 th/mm3 (1.0-4.8); Lymph % (Auto) 16.2 % (9.0-44.0); Mono # (Auto) 0.6 th/mm3 (0.0-0.9); Mono % (Auto) 6.7 % (0.0-8.0); Neut # (Auto) 6.9 th/mm3 (1.8-7.7); Neut % (Auto) 75.7 % (16.0-70.0)
[2018-10-27 20:08] LABS: Hematocrit 38.8 % (39.0-51.0); Hemoglobin 13.5 gm/dL (13.0-17.0); Mean Corpuscular HGB Conc 34.8 % (32.0-36.0); Mean Corpuscular Hemoglobin 31.7 pg (27.0-34.0); Mean Corpuscular Volume 91.1 fL (80.0-100.0); Mean Platelet Volume 7.6 fL (7.0-11.0); Platelet Count 193 th/mm3 (150-450); Red Blood Count 4.26 mil/mm3 (4.50-5.90); Red Cell Distribution Width 14.8 % (11.6-17.2); White Blood Count 9.1 th/mm3 (4.0-11.0)
[2018-10-27] MEDS ORDERED: Fosphenytoin Inj 100 MGPE in Sodium Chlor 0.9% Inj 50 ML IV.SIG SCH (22:00)
[2018-10-27] MEDS: Senna/Docusate Sodium 8.6/50 MG Tablet PO SCH (22:53)
[2018-10-27] MEDS: Fosphenytoin Inj 150 MGPE in Sodium Chlor 0.9% Inj 50 ML IV.SIG SCH (23:14)
[2018-10-28 03:25] LABS: Baso % (Auto) 0.3 % (0.0-2.0); Eos # (Auto) 0.1 th/mm3 (0.0-0.4); Eos % (Auto) 0.9 % (0.0-4.0); Hematocrit 37.6 % (39.0-51.0); Hemoglobin 12.8 gm/dL (13.0-17.0); Lymph # (Auto) 2.5 th/mm3 (1.0-4.8); Lymph % (Auto) 27.7 % (9.0-44.0); Mean Corpuscular Hemoglobin 31.2 pg (27.0-34.0); Mean Corpuscular Volume 91.8 fL (80.0-100.0); Mean Platelet Volume 6.5 fL (7.0-11.0); Mono # (Auto) 0.9 th/mm3 (0.0-0.9); Mono % (Auto) 10.7 % (0.0-8.0); Neut # (Auto) 5.4 th/mm3 (1.8-7.7); Neut % (Auto) 60.4 % (16.0-70.0); Platelet Count 184 th/mm3 (150-450); Red Cell Distribution Width 14.9 % (11.6-17.2); White Blood Count 8.9 th/mm3 (4.0-11.0)
[2018-10-28 03:38] LABS: Alanine Aminotransferase 24 U/L (12-78); Albumin 3.3 g/dL (3.4-5.0); Anion Gap 6 meq/L (5-15); Aspartate Aminotransferase 20 U/L (15-37); Blood Urea Nitrogen 13 mg/dL (7-18); Calcium 8.2 mg/dL (8.5-10.1); Carbon Dioxide 25.1 meq/L (21.0-32.0); Chloride 107 meq/L (98-107); Glomerular Filtration Rate 81 mL/min (>89); Glucose,Random 130 mg/dL (74-106); Magnesium 1.7 mg/dL (1.5-2.5); Phosphorus 2.6 mg/dL (2.5-4.9); Potassium 4.1 meq/L (3.5-5.1); Sodium 138 meq/L (136-145)
[2018-10-28 03:48] LABS: Alkaline Phosphatase 75 U/L (45-117); Total Protein 6.6 g/dL (6.4-8.2); Troponin I 0.08 ng/mL (0.02-0.05)
[2018-10-28 03:49] LABS: Activated Partial Thrombo Time 32.4 sec (23.4-31.7); INR 1.3 Ratio; Prothrombin Time 12.7 sec (9.8-11.6)
[2018-10-28] MEDS ORDERED: Chlorhexidine Gluconate 2% 1 Pack (2 Cloths) TOPICAL PRN (04:00)
[2018-10-28] MEDS: Chlorhexidine Gluconate 2% 1 Pack (2 Cloths) TOPICAL SCH (06:22)
[2018-10-28] MEDS: Sod Chloride 0.9% Inj 1,000 ML IV.CONT SCH ×3 (06:23→07:51)
[2018-10-28] MEDS: Fosphenytoin Inj 150 MGPE in Sodium Chlor 0.9% Inj 50 ML IV.SIG SCH (07:28)
[2018-10-28] MEDS ORDERED: amLODIPine 5 MG Tablet PO SCH (09:00)
[2018-10-28] MEDS: Senna/Docusate Sodium 8.6/50 MG Tablet PO SCH ×2 (09:10→20:45)
--- NOTE | 2018-10-28 09:25 | P.PNNEU ---
Subjective Subjective Comments: no acute events. no cp, no dyspnea, no focal weakness. states he missed his morning dilantin. Active Medications: Active Medications Acetaminophen (Tylenol) 650 mg PO Q6H PRN PRN Reason: Fever >100f Hydrocodone Bitart/Acetaminophen ([place] 5/325) 1 tab PO Q4H PRN PRN Reason: PAIN SCALE 1 TO 5 Al Hydroxide/Mg Hydroxide (Milk Of Traci Liq) 30 ml PO Q12H PRN PRN Reason: Mild Constipation Albuterol (Albuterol Neb (Prn)) 2.5 mg NEB Q2HR NEB PRN PRN Reason: SHORTNESS OF BREATH/WHEEZING Albuterol (Duoneb Neb ([place])) 1 ampul NEB Q4HR NEB [facility] Last Admin: 10/28/18 07:37 Dose: 1 ampul Amlodipine Besylate (Norvasc) 5 mg PO DAILY [facility] Last Admin: 10/28/18 09:10 Dose: 5 mg Bisacodyl (Dulcolax Supp) 10 mg RECTAL DAILY PRN PRN Reason: SEVERE CONSITIPATION Chlorhexidine Gluconate (Chlorhexidine 2% Cloth) 3 pack TOPICAL DAILY@0400 [facility] Stop: 11/02/18 03:59 Last Admin: 10/28/18 06:22 Dose: 3 pack Chlorhexidine Gluconate (Chlorhexidine 2% Cloth) 3 pack TOPICAL DAILY@0400 PRN PRN Reason: Extra cloth needed Stop: 11/02/18 03:59 Clonidine HCl (Catapres) 0.1 mg PO Q6H PRN PRN Reason: Sbp>170, Dbp>100, Hr>65 Hydralazine HCl (Apresoline Inj) 10 mg IV.PUSH Q1H PRN PRN Reason: Sbp> Or = 170, Dbp> Or = 100 Sodium Chloride (Ns Inj) 1,000 mls @ 70 mls/hr IV.CONT .[id number] [facility] Last Admin: 10/28/18 07:29 Dose: 70 mls/hr Nicardipine HCl 25 mg/ Sodium (Chloride) 250 mls @ 50 mls/hr IV.CONT TITRATE PRN; Protocol PRN Reason: Per Protocol Last Titration: 10/28/18 05:45 Dose: 0 mg/hr, 0 mls/hr Sodium Chloride (Ns Inj) 1,000 mls @ 84 mls/hr IV.CONT .[id number] [facility] [place] Last Admin: 10/28/18 07:51 Dose: 84 mls/hr Fosphenytoin Sodium 150 mgpe/ (Sodium Chloride) 53 mls @ 208 mls/hr IV.SIG Q8HR [facility] Last Infusion: 10/28/18 07:51 Dose: Infused Labetalol HCl (Trandate Inj) 10 mg IV.PUSH Q1H PRN PRN Reason: Sbp>170, Dbp>100, Hr>65 Lactulose (Lactulose Liq) 30 ml PO DAILY PRN PRN Reason: SEVERE CONSITIPATION Morphine Sulfate (Morphine Inj) 2 mg IV.PUSH Q2H PRN PRN Reason: PAIN SCALE 6 TO 10 Ondansetron HCl (Zofran Inj) 4 mg IV.PUSH Q6H PRN PRN Reason: NAUSEA OR VOMITING Pantoprazole Sodium (Protonix) 40 mg PO DAILY [facility] [place] Last Admin: 10/28/18 09:10 Dose: 40 mg Phenobarbital Sodium (Luminal Inj) 60 mg IV.PUSH Q8H [facility] Last Admin: 10/28/18 07:23 Dose: 60 mg Senna/Docusate Sodium (Fatemeh-Colace) 1 tab PO BID [facility] Last Admin: 10/28/18 09:10 Dose: 1 tab Sennosides (Senokot) 17.2 mg PO Q12H PRN PRN Reason: Moderate Constipation Sodium Chloride (Ns Flush) 2 ml IV.FLUSH BID [facility] Last Admin: 10/28/18 09:10 Dose: 2 ml Sodium Chloride (Ns Flush) 2 ml IV.FLUSH PRN PRN PRN Reason: FLUSH AFTER USING IV ACCESS Allergies/Adverse Reactions: Allergies Allergy/AdvReac Type Severity Reaction Status Date / Time MRI PRECAUTION AdvReac Unknown ANEURYSM Uncoded 10/20/15 14:53 CLIP Review of Systems All other systems reviewed negative except as stated in HPI Physical Exam Vital signs: Vital Signs 10/27/18 09:38 10/27/18 09:40 10/27/18 10:30 Temperature 98.5 F Pulse Rate 87 62 Respiratory Rate 16 16 Blood Pressure 228/105 H 223/100 H Pulse Oximetry 94 L 97 97 10/27/18 11:00 10/27/18 12:00 10/27/18 13:00 Temperature Pulse Rate 84 90 98 H Respiratory Rate 18 18 Blood Pressure 182/100 H 224/107 H 240/104 H Pulse Oximetry 99 99 10/27/18 14:00 10/27/18 15:00 10/27/18 15:35 Temperature Pulse Rate 82 96 H 97 H Respiratory Rate 16 16 16 Blood Pressure 185/77 H 196/91 H Pulse Oximetry 99 98 10/27/18 16:00 10/27/18 17:00 10/27/18 18:00 Temperature Pulse Rate 98 H 106 H 113 H Respiratory Rate 16 16 16 Blood Pressure 173/82 H 191/89 H 163/101 H Pulse Oximetry 98 98 98 10/27/18 19:28 10/27/18 21:55 10/27/18 22:00 Temperature 97.9 F Pulse Rate 109 H 105 H 103 H Respiratory Rate 18 24 Blood Pressure 176/80 H 168/79 H Pulse Oximetry 97 98 10/27/18 22:45 10/27/18 23:00 10/27/18 23:15 Temperature Pulse Rate 89 88 101 H Respiratory Rate 21 17 23 Blood Pressure 148/72 H 162/78 H 181/83 H Pulse Oximetry 95 97 96 10/27/18 23:22 10/27/18 23:30 10/27/18 23:45 Temperature Pulse Rate 91 H 88 103 H Respiratory Rate 17 24 38 H Blood Pressure 175/73 H 164/84 H 197/80 H Pulse Oximetry 97 97 96 10/27/18 23:55 10/28/18 00:00 10/28/18 00:15 Temperature Pulse Rate 93 H 89 90 Respiratory Rate 20 17 24 Blood Pressure 172/74 H 198/84 H Pulse Oximetry 97 97 97 10/28/18 00:30 10/28/18 00:45 10/28/18 01:00 Temperature Pulse Rate 87 89 97 H Respiratory Rate 17 18 34 H Blood Pressure 166/79 H 161/79 H 164/88 H Pulse Oximetry 98 97 98 10/28/18 01:15 10/28/18 01:30 10/28/18 01:45 Temperature Pulse Rate 86 85 97 H Respiratory Rate 17 17 50 H Blood Pressure 165/78 H 164/79 H 177/83 H Pulse Oximetry 97 96 94 L 10/28/18 02:00 10/28/18 02:15 10/28/18 02:30 Temperature Pulse Rate 85 84 81 Respiratory Rate 17 17 17 Blood Pressure 161/84 H 153/80 H 143/76 H Pulse Oximetry 96 97 96 10/28/18 02:45 10/28/18 03:00 10/28/18 03:15 Temperature Pulse Rate 81 82 81 Respiratory Rate 17 17 17 Blood Pressure 147/78 H 160/84 H 170/81 H Pulse Oximetry 96 96 96 10/28/18 03:26 10/28/18 03:30 10/28/18 03:45 Temperature Pulse Rate 80 79 78 Respiratory Rate 10 L 17 17 Blood Pressure 158/79 H 156/81 H Pulse Oximetry 95 97 96 10/28/18 04:00 10/28/18 04:15 10/28/18 04:30 Temperature 97.8 F Pulse Rate 76 76 74 Respiratory Rate 16 17 17 Blood Pressure 160/83 H 138/80 155/80 H Pulse Oximetry 97 97 97 10/28/18 04:45 10/28/18 05:00 10/28/18 05:15 Temperature Pulse Rate 77 84 77 Respiratory Rate 34 H 28 H 16 Blood Pressure 142/70 H 165/77 H 160/81 H Pulse Oximetry 95 97 97 10/28/18 05:30 10/28/18 05:45 10/28/18 06:00 Temperature Pulse Rate 77 76 76 Respiratory Rate 16 16 17 Blood Pressure 163/85 H 168/86 H 162/83 H Pulse Oximetry 97 97 97 10/28/18 07:40 10/28/18 07:42 Temperature Pulse Rate 73 Respiratory Rate 16 Blood Pressure Pulse Oximetry 100 100 Intake & Output 10/27/18 10/28/18 10/28/18 18:59 06:59 18:59 Intake Total 70 / 70 1663 / 1663 1053 / 1053 Output Total 600 / 600 Balance -530 / -530 1663 / 1663 1053 / 1053 Weight 93.4 kg 90.7 kg Intake: IV 70 / 70 1663 / 1663 1053 / 1053 NS Inj 1,000 ML @ 84 mls/hr IV. 1350 / 1350 1000 / 1000 CONT .[id number] [facility] Rx#:[id number] Cardene Inj 25 MG In NS Inj 240 260 / 260 ML @ 5 MG/HR 50 mls/hr IV.CONT TITRATE PRN Rx#:[id number] Cerebyx Inj 150 MGPE In NS Inj 53 / 53 53 / 53 50 ML @ 208 mls/hr IV.SIG Q8HR [facility] Rx#:[id number] Cerebyx Inj 1,000 MGPE In NS 70 / 70 Inj 50 ML @ 280 mls/hr IV.SIG ONCE ONE Rx#:[id number] Output: Urine 600 / 600 Other: Post Void Residual 950 Weight On Admission 90.7 kg Narrative: GENERAL: in NAD, SKIN: Warm and dry. HEAD: Atraumatic. Normocephalic. EYES: Pupils equal and round. No scleral icterus. ENT: No nasal bleeding or discharge. NECK: Trachea midline. No JVD. CARDIOVASCULAR: Regular rate and rhythm. RESPIRATORY: No accessory muscle use. GASTROINTESTINAL: Abdomen soft, non-tender, nondistended. MUSCULOSKELETAL: Extremities without clubbing, cyanosis, or edema. No obvious deformities. NEUROLOGICAL: Awake alert, ox 3, follows, pleasant, eomi, OU 3 2 mm, asymmetric no involuntary movements moving all 4 extremities to gravity without any difficulty gait not assessed secondary to fall risk no nuchal rigidity appreciated PSYCHIATRIC: pleasant, calm - Constitutional no acute distress - Routine HEENT Exam Head: Present: normocephalic Eye: Present: EOMI Objective Laboratory Results - last 24 hr 10/27/18 10/27/18 10/27/18 09:44 10:42 10:42 WBC RBC Hgb Hct MCV MCH MCHC RDW Plt Count MPV Prelim Diff (Auto) Neut % (Auto) Lymph % (Auto) [place] % (Auto) Eos % (Auto) Baso % (Auto) Neut # (Auto) Lymph # (Auto) [place] # (Auto) Eos # (Auto) Baso # (Auto) WBC Differential Seg Neuts % (Manual) Band Neuts % (Manual) Lymphocytes % (Manual) Monocytes % (Manual) Abs Neuts (Manual) Differential Comment Platelet Estimate Platelet Morphology PT INR APTT Sodium Potassium Chloride Carbon Dioxide Anion Gap BUN Creatinine Estimated GFR POC Glucose 118 H Random Glucose Lactic Acid Calcium Phosphorus Magnesium Total Bilirubin AST ALT Alkaline Phosphatase Ammonia Total Creatine Kinase CK-MB (CK-2) CK-MB (CK-2) % Troponin I Total Protein Albumin TSH Urine Color Straw Urine Clarity Hazy H Urine pH 7.0 Ur Specific [place] 1.009 Urine Protein Negative Urine Glucose (UA) Negative Urine Ketones Negative Urine Occult Blood Negative Urine Nitrate Negative Urine Bilirubin Negative Urine Urobilinogen Less than 2 Ur Leukocyte Esterase Negative Urine RBC 1 Ur Squamous Epith Cells <1 Hyaline Casts 1 Micro UA Comment Cath-culture not ind Ur Microscopic Review Not Reportable Urine Culture Comments Cath-cult not ind Nasal Screen MRSA (PCR) Urine Opiates Screen Neg Ur Barbiturates Screen Neg Phenytoin Ur Amphetamines Screen Neg Phenobarbital U Benzodiazepines Scrn Neg Urine Cocaine Screen Neg U Cannabinoids Screen Neg Blood Type Antibody Screen 10/27/18 10/27/18 10/27/18 11:13 11:13 13:44 WBC 9.1 RBC 4.26 L Hgb 13.5 Hct 38.8 L MCV 91.1 MCH 31.7 MCHC 34.8 RDW 14.8 Plt Count 193 MPV 7.6 Prelim Diff (Auto) Not Reportable Neut % (Auto) 75.7 H Lymph % (Auto) 16.2 [place] % (Auto) 6.7 Eos % (Auto) 0.7 Baso % (Auto) 0.7 Neut # (Auto) 6.9 Lymph # (Auto) 1.5 [place] # (Auto) 0.6 Eos # (Auto) 0.1 Baso # (Auto) 0.1 WBC Differential Manual diff final Seg Neuts % (Manual) [employer] Band Neuts % (Manual) [employer] Aide Lymphocytes % (Manual) 15 Monocytes % (Manual) 7 Abs Neuts (Manual) [employer] Aide Differential Comment Auto diff final Platelet Estimate Normal Platelet Morphology Normal PT INR APTT Sodium 133 L Potassium 4.4 Chloride 105 Carbon Dioxide 21.1 Anion Gap 7 BUN 14 Creatinine 1.07 Estimated GFR 82 L POC Glucose Random Glucose 135 H Lactic Acid Calcium 8.8 Phosphorus Magnesium Total Bilirubin 0.3 AST 19 ALT 26 Alkaline Phosphatase 82 Ammonia Total Creatine Kinase 254 CK-MB (CK-2) CK-MB (CK-2) % Troponin I Less than 0.02 L Total Protein 7.6 Albumin 3.7 TSH Urine Color Urine Clarity Urine pH Ur Specific [place] Urine Protein Urine Glucose (UA) Urine Ketones Urine Occult Blood Urine Nitrate Urine Bilirubin Urine Urobilinogen Ur Leukocyte Esterase Urine RBC Ur Squamous Epith Cells Hyaline Casts Micro UA Comment Ur Microscopic Review Urine Culture Comments Nasal Screen MRSA (PCR) Urine Opiates Screen Ur Barbiturates Screen Phenytoin 10.4 Ur Amphetamines Screen Phenobarbital Less than 2.1 L U Benzodiazepines Scrn Urine Cocaine Screen U Cannabinoids Screen Blood Type Antibody Screen 10/27/18 10/27/18 10/27/18 13:44 13:58 14:19 WBC RBC Hgb Hct MCV MCH MCHC RDW Plt Count MPV Prelim Diff (Auto) Neut % (Auto) Lymph % (Auto) [place] % (Auto) Eos % (Auto) Baso % (Auto) Neut # (Auto) Lymph # (Auto) [place] # (Auto) Eos # (Auto) Baso # (Auto) WBC Differential Seg Neuts % (Manual) Band Neuts % (Manual) Lymphocytes % (Manual) Monocytes % (Manual) Abs Neuts (Manual) Differential Comment Platelet Estimate Platelet Morphology PT 12.6 H INR 1.2 APTT 31.0 Sodium Potassium Chloride Carbon Dioxide Anion Gap BUN Creatinine Estimated GFR POC Glucose Random Glucose Lactic Acid Calcium Phosphorus Magnesium Total Bilirubin AST ALT Alkaline Phosphatase Ammonia Total Creatine Kinase CK-MB (CK-2) CK-MB (CK-2) % Troponin I Total Protein Albumin TSH Urine Color Urine Clarity Urine pH Ur Specific [place] Urine Protein Urine Glucose (UA) Urine Ketones Urine Occult Blood Urine Nitrate Urine Bilirubin Urine Urobilinogen Ur Leukocyte Esterase Urine RBC Ur Squamous Epith Cells Hyaline Casts Micro UA Comment Ur Microscopic Review Urine Culture Comments Nasal Screen MRSA (PCR) Urine Opiates Screen Ur Barbiturates Screen Phenytoin 10.0 Ur Amphetamines Screen Phenobarbital U Benzodiazepines Scrn Urine Cocaine Screen U Cannabinoids Screen Blood Type O Positive Antibody Screen Negative 10/27/18 10/27/18 10/27/18 14:19 17:39 21:00 WBC RBC Hgb Hct MCV MCH MCHC RDW Plt Count MPV Prelim Diff (Auto) Neut % (Auto) Lymph % (Auto) [place] % (Auto) Eos % (Auto) Baso % (Auto) Neut # (Auto) Lymph # (Auto) [place] # (Auto) Eos # (Auto) Baso # (Auto) WBC Differential Seg Neuts % (Manual) Band Neuts % (Manual) Lymphocytes % (Manual) Monocytes % (Manual) Abs Neuts (Manual) Differential Comment Platelet Estimate Platelet Morphology PT INR APTT Sodium 134 L Potassium 4.0 Chloride 103 Carbon Dioxide 27.8 Anion Gap 3 L BUN 13 Creatinine 1.08 Estimated GFR 81 L POC Glucose Random Glucose 116 H Lactic Acid Calcium 8.5 Phosphorus Magnesium Total Bilirubin 0.3 AST 22 ALT 23 Alkaline Phosphatase 77 Ammonia Less than 10 L Total Creatine Kinase 416 H CK-MB (CK-2) 1.7 CK-MB (CK-2) % 0.4 Troponin I 0.02 0.09 H Total Protein 7.2 Albumin 3.5 TSH Urine Color Urine Clarity Urine pH Ur Specific [place] Urine Protein Urine Glucose (UA) Urine Ketones Urine Occult Blood Urine Nitrate Urine Bilirubin Urine Urobilinogen Ur Leukocyte Esterase Urine RBC Ur Squamous Epith Cells Hyaline Casts Micro UA Comment Ur Microscopic Review Urine Culture Comments Nasal Screen MRSA (PCR) Urine Opiates Screen Ur Barbiturates Screen Phenytoin Ur Amphetamines Screen Phenobarbital U Benzodiazepines Scrn Urine Cocaine Screen U Cannabinoids Screen Blood Type Antibody Screen 10/27/18 10/28/18 10/28/18 22:30 03:08 03:08 WBC 8.9 RBC 4.10 L Hgb 12.8 L Hct 37.6 L MCV 91.8 MCH 31.2 MCHC 34.0 RDW 14.9 Plt Count 184 MPV 6.5 L Prelim Diff (Auto) Neut % (Auto) 60.4 Lymph % (Auto) 27.7 [place] % (Auto) 10.7 H Eos % (Auto) 0.9 Baso % (Auto) 0.3 Neut # (Auto) 5.4 Lymph # (Auto) 2.5 [place] # (Auto) 0.9 Eos # (Auto) 0.1 Baso # (Auto) 0.0 WBC Differential . Seg Neuts % (Manual) Band Neuts % (Manual) Lymphocytes % (Manual) Monocytes % (Manual) Abs Neuts (Manual) Differential Comment Auto diff final Platelet Estimate Platelet Morphology PT 12.7 H INR 1.3 APTT 32.4 H Sodium Potassium Chloride Carbon Dioxide Anion Gap BUN Creatinine Estimated GFR POC Glucose Random Glucose Lactic Acid Calcium Phosphorus Magnesium Total Bilirubin AST ALT Alkaline Phosphatase Ammonia Total Creatine Kinase CK-MB (CK-2) CK-MB (CK-2) % Troponin I Total Protein Albumin TSH Urine Color Urine Clarity Urine pH Ur Specific [place] Urine Protein Urine Glucose (UA) Urine Ketones Urine Occult Blood Urine Nitrate Urine Bilirubin Urine Urobilinogen Ur Leukocyte Esterase Urine RBC Ur Squamous Epith Cells Hyaline Casts Micro UA Comment Ur Microscopic Review Urine Culture Comments Nasal Screen MRSA (PCR) Not detected Urine Opiates Screen Ur Barbiturates Screen Phenytoin Ur Amphetamines Screen Phenobarbital U Benzodiazepines Scrn Urine Cocaine Screen U Cannabinoids Screen Blood Type Antibody Screen 10/28/18 10/28/18 03:08 03:08 WBC RBC Hgb Hct MCV MCH MCHC RDW Plt Count MPV Prelim Diff (Auto) Neut % (Auto) Lymph % (Auto) [place] % (Auto) Eos % (Auto) Baso % (Auto) Neut # (Auto) Lymph # (Auto) [place] # (Auto) Eos # (Auto) Baso # (Auto) WBC Differential Seg Neuts % (Manual) Band Neuts % (Manual) Lymphocytes % (Manual) Monocytes % (Manual) Abs Neuts (Manual) Differential Comment Platelet Estimate Platelet Morphology PT INR APTT Sodium 138 Potassium 4.1 Chloride 107 Carbon Dioxide 25.1 Anion Gap 6 BUN 13 Creatinine 1.08 Estimated GFR 81 L POC Glucose Random Glucose 130 H Lactic Acid 0.9 Calcium 8.2 L Phosphorus 2.6 Magnesium 1.7 Total Bilirubin 0.5 AST 20 ALT 24 Alkaline Phosphatase 75 Ammonia Total Creatine Kinase CK-MB (CK-2) CK-MB (CK-2) % Troponin I 0.08 H Total Protein 6.6 D Albumin 3.3 L TSH 1.240 Urine Color Urine Clarity Urine pH Ur Specific [place] Urine Protein Urine Glucose (UA) Urine Ketones Urine Occult Blood Urine Nitrate Urine Bilirubin Urine Urobilinogen Ur Leukocyte Esterase Urine RBC Ur Squamous Epith Cells Hyaline Casts Micro UA Comment Ur Microscopic Review Urine Culture Comments Nasal Screen MRSA (PCR) Urine Opiates Screen Ur Barbiturates Screen Phenytoin Ur Amphetamines Screen Phenobarbital U Benzodiazepines Scrn Urine Cocaine Screen U Cannabinoids Screen Blood Type Antibody Screen Review/Management - Diagnosis (1) Cerebral aneurysm Code(s): I67.1 - Cerebral aneurysm, nonruptured Status: Acute Current Visit : Yes (2) Hypertensive encephalopathy Code(s): I67.4 - Hypertensive encephalopathy Status: Acute Current Visit: Yes (3) Seizure Code(s): R56.9 - Unspecified convulsions Status: Acute Current Visit: Yes - Review/Management Plan: Confusional episodes Suspected left hemispheric seizures. Similar presentation in 2014 that time patient was having 6 seizures emanating from the left posterior hemisphere Urine drug screen negative. Glucose greater than 100 Recommendation neuro improved will change to dilantin po and add depakote f/u eeg ok for floor Seizure fall precautions No driving, operating any heavy machinery or dangerous machinery, swimming alone for at least 6 months of being seizure, spell free.
[2018-10-28] MEDS ORDERED: amLODIPine 5 MG Tablet PO ONE (09:37)
[2018-10-28] MEDS: Phenytoin Susp 100 MG/4 ML UDC PO SCH ×2 (10:35→20:44)
--- NOTE | 2018-10-28 11:45 | P.PNCC ---
Subjective Subjective Remarks/Hospital Course: This is a 73-year-old AA male. Date of admission 10/27/2018. 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 Patient is currently on Dilantin 240 mg twice daily. Patient presented to [facility] today from [facility] as a stroke alert. Today, the patient was at [facility] [place] consuming hamburgers when he suddenly developed confusion, altered mental status, and appeared to have difficulty ambulating. EMS called a stroke alert in the field. Upon arrival the patient was awake, alert, and oriented. The patient denied any complaints including weakness or numbness. The patient appeared to have slight difficulty comprehending commands, but his stroke scale was 0. The patient does have a previous history of previous left P com/RECRUITING CONSULTANT aneurysm clipping. The patient denies any headache, chest pain, shortness of breath, nausea, vomiting, or abdominal pain. The patient denies any difficulty with his speech and denies any weakness or numbness of the upper or lower extremities. Patient does note a history of seizures for which he takes Dilantin. CT brain revealed signs of a left posterior occipital craniotomy with encephalomalacia involving the left occipital region. Encephalomalacia in the left paramedial tentorium. Right frontal region reveals a slight of possible prior ventriculostomy. No signs of acute CVA. Patient was noted to be quite hypertensive with a systolic blood pressure in the 240s. Subjective left-sided which patient had a witnessed seizure in the ED which resolved on its own. Patient is chronically on fosphenytoin level was 10. Patient was started on nicardipine drip and his confusion is improved. NIH score is still 0. Subjective 10/28: Off nicardipine drip. Blood pressure better controlled. No seizure activity. Resting complaint bed wishing to go home. Denies headache. Objective Vital Signs / I&O: Vital Signs 10/27/18 12:00 10/27/18 13:00 10/27/18 14:00 Temperature Pulse Rate 90 98 H 82 Respiratory Rate 18 18 16 Blood Pressure 224/107 H 240/104 H 185/77 H Pulse Oximetry 99 99 99 10/27/18 15:00 10/27/18 15:35 10/27/18 16:00 Temperature Pulse Rate 96 H 97 H 98 H Respiratory Rate 16 16 16 Blood Pressure 196/91 H 173/82 H Pulse Oximetry 98 98 10/27/18 17:00 10/27/18 18:00 10/27/18 19:28 Temperature Pulse Rate 106 H 113 H 109 H Respiratory Rate 16 16 18 Blood Pressure 191/89 H 163/101 H Pulse Oximetry 98 98 97 10/27/18 21:55 10/27/18 22:00 10/27/18 22:45 Temperature 97.9 F Pulse Rate 105 H 103 H 89 Respiratory Rate 24 21 Blood Pressure 176/80 H 168/79 H 148/72 H Pulse Oximetry 98 95 10/27/18 23:00 10/27/18 23:15 10/27/18 23:22 Temperature Pulse Rate 88 101 H 91 H Respiratory Rate 17 23 17 Blood Pressure 162/78 H 181/83 H 175/73 H Pulse Oximetry 97 96 97 10/27/18 23:30 10/27/18 23:45 10/27/18 23:55 Temperature Pulse Rate 88 103 H 93 H Respiratory Rate 24 38 H 20 Blood Pressure 164/84 H 197/80 H Pulse Oximetry 97 96 97 10/28/18 00:00 10/28/18 00:15 10/28/18 00:30 Temperature Pulse Rate 89 90 87 Respiratory Rate 17 24 17 Blood Pressure 172/74 H 198/84 H 166/79 H Pulse Oximetry 97 97 98 10/28/18 00:45 10/28/18 01:00 10/28/18 01:15 Temperature Pulse Rate 89 97 H 86 Respiratory Rate 18 34 H 17 Blood Pressure 161/79 H 164/88 H 165/78 H Pulse Oximetry 97 98 97 10/28/18 01:30 10/28/18 01:45 10/28/18 02:00 Temperature Pulse Rate 85 97 H 85 Respiratory Rate 17 50 H 17 Blood Pressure 164/79 H 177/83 H 161/84 H Pulse Oximetry 96 94 L 96 10/28/18 02:15 10/28/18 02:30 10/28/18 02:45 Temperature Pulse Rate 84 81 81 Respiratory Rate 17 17 17 Blood Pressure 153/80 H 143/76 H 147/78 H Pulse Oximetry 97 96 96 10/28/18 03:00 10/28/18 03:15 10/28/18 03:26 Temperature Pulse Rate 82 81 80 Respiratory Rate 17 17 10 L Blood Pressure 160/84 H 170/81 H Pulse Oximetry 96 96 95 10/28/18 03:30 10/28/18 03:45 10/28/18 04:00 Temperature 97.8 F Pulse Rate 79 78 76 Respiratory Rate 17 17 16 Blood Pressure 158/79 H 156/81 H 160/83 H Pulse Oximetry 97 96 97 10/28/18 04:15 10/28/18 04:30 10/28/18 04:45 Temperature Pulse Rate 76 74 77 Respiratory Rate 17 17 34 H Blood Pressure 138/80 155/80 H 142/70 H Pulse Oximetry 97 97 95 10/28/18 05:00 10/28/18 05:15 10/28/18 05:30 Temperature Pulse Rate 84 77 77 Respiratory Rate 28 H 16 16 Blood Pressure 165/77 H 160/81 H 163/85 H Pulse Oximetry 97 97 97 10/28/18 05:45 10/28/18 06:00 10/28/18 07:00 Temperature Pulse Rate 76 76 74 Respiratory Rate 16 17 23 Blood Pressure 168/86 H 162/83 H 164/85 H Pulse Oximetry 97 97 98 10/28/18 07:15 10/28/18 07:30 10/28/18 07:40 Temperature Pulse Rate 71 71 73 Respiratory Rate 18 27 H 16 Blood Pressure 161/80 H 169/96 H Pulse Oximetry 99 99 100 10/28/18 07:42 10/28/18 07:45 10/28/18 08:00 Temperature Pulse Rate 67 68 Respiratory Rate 18 15 Blood Pressure 170/91 H 172/87 H Pulse Oximetry 100 98 98 10/28/18 08:15 10/28/18 08:30 10/28/18 08:46 Temperature 98.4 F Pulse Rate 64 65 74 Respiratory Rate 15 16 16 Blood Pressure 168/81 H 172/87 H 200/91 H Pulse Oximetry 99 99 99 10/28/18 08:53 10/28/18 09:00 10/28/18 09:04 Temperature Pulse Rate 67 86 77 Respiratory Rate 22 32 H 23 Blood Pressure 180/84 H Pulse Oximetry 100 99 100 10/28/18 09:11 10/28/18 09:25 10/28/18 09:27 Temperature Pulse Rate 73 81 90 Respiratory Rate 28 H 27 H 26 H Blood Pressure 166/78 H 158/76 H 174/81 H Pulse Oximetry 99 98 98 10/28/18 10:00 Temperature Pulse Rate 76 Respiratory Rate 15 Blood Pressure Pulse Oximetry 98 Intake & Output 10/27/18 10/28/18 10/28/18 18:59 06:59 18:59 Intake Total 70 / 70 1663 / 1663 1053 / 1053 Output Total 600 / 600 Balance -530 / -530 1663 / 1663 1053 / 1053 Weight 93.4 kg 90.7 kg Intake: IV 70 / 70 1663 / 1663 1053 / 1053 NS Inj 1,000 ML @ 84 mls/hr IV. 1350 / 1350 1000 / 1000 CONT .[id number] [facility] Rx#:[id number] Cardene Inj 25 MG In NS Inj 240 260 / 260 ML @ 5 MG/HR 50 mls/hr IV.CONT TITRATE PRN Rx#:[id number] Cerebyx Inj 150 MGPE In NS Inj 53 / 53 53 / 53 50 ML @ 208 mls/hr IV.SIG Q8HR [facility] Rx#:[id number] Cerebyx Inj 1,000 MGPE In NS 70 / 70 Inj 50 ML @ 280 mls/hr IV.SIG ONCE ONE Rx#:[id number] Output: Urine 600 / 600 Other: Post Void Residual 950 Weight On Admission 90.7 kg Result Diagrams: 10/28/18 03:08 10/28/18 03:08 Imaging: Chest X-Ray 10/27/18 09:40 CONCLUSION: Mild chronic appearing interstitial changes stable compared to prior exam. Head CT 10/27/18 09:40 CONCLUSION: No definite acute intracranial findings. Report was called by Ashlee Desouza at 0955 Objective Remarks: \GENERAL: 73-year-old male currently resting in bed in no acute distress SKIN: Warm and dry. HEAD: Atraumatic. Normocephalic. EYES: Pupils equal and round. No scleral icterus. No injection or drainage. ENT: No nasal bleeding or discharge. Mucous membranes pink and moist. NECK: Trachea midline. No JVD. CARDIOVASCULAR: Regular rate and rhythm. S1, S2. No S4. RESPIRATORY: No accessory muscle use. Clear to auscultation. Breath sounds equal bilaterally. GASTROINTESTINAL: Abdomen soft, non-tender, nondistended. Hepatic and splenic margins not palpable. MUSCULOSKELETAL: Extremities without clubbing, cyanosis, or edema. No obvious deformities. NEUROLOGICAL: Awake and alert. No obvious cranial nerve deficits. Motor grossly within normal limits. Five out of 5 muscle strength in the arms and legs. Normal speech. 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 Right frontal anterior ventriculostomy deck for more site questionable. Signs of left occipital encephalomalacia. Phenytoin level was 10. On 250 mg twice daily at home. This is been resumed. See cardiovascular for blood pressure control. Seizure precautions Started on phenobarbital 60 mg every 8 hours and divalproex 5 mg twice daily per neurology Check phenytoin level in a.m. along with valproic acid level and phenobarbital level EEG ordered Unable to do MRI due to prior aneurysm clippings CV: Hypertensive emergency Elevated troponin Mild AR On no home antihypertensive medications. EKG unremarkable for ST elevation. Received 1 dose of enalaprilat in ED 2.5 mg. Needed on nicardipine drip goal to keep systolic blood pressure l decrease 25% admission for systolic blood pressure. Goal systolic blood pressure around 170. As needed enalapril, Nitropaste and clonidine as needed on floor an. Start amlodipine 10 mg daily in a.m. Check 2D echocardiogram for hypertensive heart disease Normal left ventricular size. Wall thickness is measured at the upper limits of normal. The left ventricular systolic function is normal with an estimated ejection fraction in the range of 55-60%. Resp: Nasal cannula to maintain saturations greater than equal to 92% Incentive spirometry while awake As needed albuterol aerosols every 2 hours as needed GI: Okay to start on cardiac diet Pantoprazole for GI prophylaxis Docusate sodium/senna 1 tablet twice daily for bowel regimen : Straight catheterization as needed Endo: Sliding scale insulin as indicated to maintain euglycemia TSH within normal limits at 1.24 Renal: Creatinine currently within normal limit Monitor urine output Accurate I's and O's Heme: Normocytic anemia CBC ordered for a.m. No indication for transfusion of blood products at this time ID: Monitor for signs and symptomatology infection FEN: Replace electrolytes as clinically indicated MSK: BMI 32. PT evaluate and treat Weight loss encouraged Access -Utilize peripheral IV. Central line if indicated Prophylaxis -GI -pantoprazole -DVT-SCD/holding pharmacologic prophylaxis in light of seizures Level 2 follow-up. Stable from critical care medicine standpoint. Assign care to hospitalist in a.m. 10/29.
[2018-10-28] MEDS: Divalproex 500 MG ER Tablet PO SCH ×2 (14:21→20:44)
--- NOTE | 2018-10-28 15:35 | MG ---
cc: Kenya Alarcon MD AGE: [id number] years old. EEG NUMBER: [id number] REFERRING PHYSICIAN: Dr. Ackerman ROOM: 500 Awake, drowsy, asleep with photic stimulation. CT shows left posterior occipital craniotomy anatomy with encephalomalacia same region, right frontal ventriculostomy. EEG 10/2015, some phase reversals isolated. Is admitted with witnessed seizure in the ED, resolved on its own. History of hypertension, seizures, on Dilantin, nicardipine, Luminal. DESCRIPTION OF RECORD: The patient has some slowing of background 4-5 Hz. Overall, symmetrically slow. Some noted movement of the left hand. There is some sharp wave activity seen more over the left hemisphere. It is not continuous; it is isolated. Does not look like any active seizures but visible. Photic stimulation at the end of the study shows a driving response. IMPRESSION: Abnormal EEG due to some mild slowing of background, but also sharp wave activity seen paroxysmally over the left hemisphere may be focus for this patient's seizures. No active seizures, however. Clinical correlation. Kenya Alarcon MD DF/ , 03:06 PM , 03:11 PM
[2018-10-28 19:24] LABS: Phenytoin (Dilantin) 18.9 mcg/mL (10.0-20.0)
[2018-10-29] MEDS: Chlorhexidine Gluconate 2% 1 Pack (2 Cloths) TOPICAL SCH (05:03)
[2018-10-29 06:39] LABS: Baso % (Auto) 0.4 % (0.0-2.0); Eos # (Auto) 0.2 th/mm3 (0.0-0.4); Hematocrit 36.3 % (39.0-51.0); Hemoglobin 12.4 gm/dL (13.0-17.0); Lymph # (Auto) 1.6 th/mm3 (1.0-4.8); Lymph % (Auto) 18.9 % (9.0-44.0); Mean Corpuscular HGB Conc 34.2 % (32.0-36.0); Mean Corpuscular Volume 93.5 fL (80.0-100.0); Mean Platelet Volume 7.1 fL (7.0-11.0); Mono # (Auto) 0.9 th/mm3 (0.0-0.9); Neut # (Auto) 5.6 th/mm3 (1.8-7.7); Neut % (Auto) 67.7 % (16.0-70.0); Platelet Count 159 th/mm3 (150-450); Red Blood Count 3.89 mil/mm3 (4.50-5.90); Red Cell Distribution Width 14.7 % (11.6-17.2); White Blood Count 8.3 th/mm3 (4.0-11.0)
[2018-10-29 06:56] LABS: Albumin 3.1 g/dL (3.4-5.0); Anion Gap 10 meq/L (5-15); Aspartate Aminotransferase 21 U/L (15-37); Blood Urea Nitrogen 14 mg/dL (7-18); Calcium 8.5 mg/dL (8.5-10.1); Carbon Dioxide 21.9 meq/L (21.0-32.0); Chloride 107 meq/L (98-107); Glomerular Filtration Rate 89 mL/min (>89); Glucose,Random 111 mg/dL (74-106); Phosphorus 2.6 mg/dL (2.5-4.9); Potassium 4.3 meq/L (3.5-5.1); Sodium 139 meq/L (136-145)
[2018-10-29 07:01] LABS: Alanine Aminotransferase 24 U/L (12-78); Alkaline Phosphatase 70 U/L (45-117); Total Protein 6.4 g/dL (6.4-8.2); Valproic Acid 35 mcg/mL (50-100)
[2018-10-29] MEDS: Divalproex 500 MG ER Tablet PO SCH (08:59)
[2018-10-29] MEDS: Senna/Docusate Sodium 8.6/50 MG Tablet PO SCH (08:59)
[2018-10-29] MEDS: Phenytoin Susp 100 MG/4 ML UDC PO SCH (09:00)
[2018-10-29] MEDS ORDERED: amLODIPine 10 MG Tablet PO SCH (09:00)
[2018-10-29 09:05] VITALS: RESP 20
[2018-10-29 13:10] VITALS: O2SAT 100
--- NOTE | 2018-10-29 15:23 | P.PN ---
Physical Exam Vital signs: Vital Signs 10/28/18 20:15 10/28/18 22:06 10/28/18 23:33 Temperature 98.0 F 98.4 F Pulse Rate 70 75 67 Respiratory Rate 16 16 18 Blood Pressure 173/81 H 156/72 H Pulse Oximetry 97 99 98 10/29/18 01:00 10/29/18 04:20 10/29/18 06:59 Temperature 98.8 F Pulse Rate 66 Respiratory Rate 18 18 12 Blood Pressure 163/75 H Pulse Oximetry 97 10/29/18 08:00 10/29/18 12:00 Temperature 98.6 F 98.4 F Pulse Rate 95 H 84 Respiratory Rate 20 20 Blood Pressure 153/84 H 183/86 H Pulse Oximetry 96 100 Intake & Output 10/28/18 10/29/18 10/29/18 18:59 06:59 18:59 Intake Total 1757 / 1757 Balance 1757 / 1757 Weight 89.9 kg Intake: IV 1757 / 1757 NS Inj 1,000 ML @ 84 mls/hr IV. 1464 / 1464 CONT .[id number] [facility] Rx#:[id number] Cardene Inj 25 MG In NS Inj 240 240 / 240 ML @ 5 MG/HR 50 mls/hr IV.CONT TITRATE PRN Rx#:[id number] Cerebyx Inj 150 MGPE In NS Inj 53 / 53 50 ML @ 208 mls/hr IV.SIG Q8HR [facility] Rx#:[id number] Other: # Voids 4 Date of Last Bowel Movement 10/27/18 10/28/18 Results - Labs CBC & Chem 7: 10/29/18 04:15 10/29/18 04:15 Laboratory Results - last 24 hr 10/28/18 10/28/18 10/29/18 18:25 19:45 04:15 WBC 8.3 RBC 3.89 L Hgb 12.4 L Hct 36.3 L MCV 93.5 MCH 32.0 MCHC 34.2 RDW 14.7 Plt Count 159 MPV 7.1 Neut % (Auto) 67.7 Lymph % (Auto) 18.9 [place] % (Auto) 11.0 H Eos % (Auto) 2.0 Baso % (Auto) 0.4 Neut # (Auto) 5.6 Lymph # (Auto) 1.6 [place] # (Auto) 0.9 Eos # (Auto) 0.2 Baso # (Auto) 0.0 WBC Differential . Differential Comment Auto diff final Sodium Potassium Chloride Carbon Dioxide Anion Gap BUN Creatinine Estimated GFR POC Glucose 166 H Random Glucose Calcium Phosphorus Magnesium Total Bilirubin AST ALT Alkaline Phosphatase Total Protein Albumin Phenytoin 18.9 Valproic Acid Phenobarbital 5.0 L 10/29/18 10/29/18 04:15 06:39 WBC RBC Hgb Hct MCV MCH MCHC RDW Plt Count MPV Neut % (Auto) Lymph % (Auto) [place] % (Auto) Eos % (Auto) Baso % (Auto) Neut # (Auto) Lymph # (Auto) [place] # (Auto) Eos # (Auto) Baso # (Auto) WBC Differential Differential Comment Sodium 139 Potassium 4.3 Chloride 107 Carbon Dioxide 21.9 Anion Gap 10 BUN 14 Creatinine 1.00 Estimated GFR 89 POC Glucose 112 H Random Glucose 111 H Calcium 8.5 Phosphorus 2.6 Magnesium 2.0 Total Bilirubin 0.5 AST 21 ALT 24 Alkaline Phosphatase 70 Total Protein 6.4 Albumin 3.1 L Phenytoin Valproic Acid 35 L Phenobarbital
[2018-10-29 16:31] VITALS: BP 151/88; PULSE 83; TEMP 98.3
--- NOTE | 2018-10-29 17:19 | P.PN ---
Subjective Interval history: Follow up for seizure, HTN urgency: Pt. seen and examined, ambulating around unit, without any difficulties. Denies any CP, no sob. No recurrent seizures. States he may have missed morning dose of Dilantin on day of admission. Pt. anxious to go home, his granddaughter 4 days ago and tomorrow is the . BP improving, no prior Hx of HTN. Physical Exam Vital signs: Vital Signs 10/28/18 20:15 10/28/18 22:06 10/28/18 23:33 Temperature 98.0 F 98.4 F Pulse Rate 70 75 67 Respiratory Rate 16 16 18 Blood Pressure 173/81 H 156/72 H Pulse Oximetry 97 99 98 10/29/18 01:00 10/29/18 04:20 10/29/18 06:59 Temperature 98.8 F Pulse Rate 66 Respiratory Rate 18 18 12 Blood Pressure 163/75 H Pulse Oximetry 97 10/29/18 08:00 10/29/18 12:00 10/29/18 16:00 Temperature 98.6 F 98.4 F 98.3 F Pulse Rate 95 H 84 83 Respiratory Rate 20 20 20 Blood Pressure 153/84 H 183/86 H 151/88 H Pulse Oximetry 96 100 100 10/29/18 16:48 Temperature 98.3 F Pulse Rate 83 Respiratory Rate 20 Blood Pressure 151/88 H Pulse Oximetry 100 Intake & Output 10/28/18 10/29/18 10/29/18 18:59 06:59 18:59 Intake Total 1757 / 1757 Balance 1757 / 1757 Weight 89.9 kg Intake: IV 1757 / 1757 NS Inj 1,000 ML @ 84 mls/hr IV. 1464 / 1464 CONT .[id number] [facility] Rx#:[id number] Cardene Inj 25 MG In NS Inj 240 240 / 240 ML @ 5 MG/HR 50 mls/hr IV.CONT TITRATE PRN Rx#:[id number] Cerebyx Inj 150 MGPE In NS Inj 53 / 53 50 ML @ 208 mls/hr IV.SIG Q8HR [facility] Rx#:[id number] Other: # Voids 4 Date of Last Bowel Movement 10/27/18 10/28/18 Narrative: GENERAL:73-year-old well-developed well-nourished male, no apparent distress. Noted ambulating around unit without any difficulty. SKIN: Warm and dry. HEAD: Atraumatic. Normocephalic. EYES: Pupils equal and round. No scleral icterus. ENT: No nasal bleeding or discharge. NECK: Trachea midline. No JVD. CARDIOVASCULAR: Regular rate and rhythm. RESPIRATORY: No accessory muscle use. GASTROINTESTINAL: Abdomen soft, non-tender, nondistended. MUSCULOSKELETAL: Extremities without clubbing, cyanosis, or edema. No obvious deformities. NEUROLOGICAL: Awake, alert oriented x3. No focal deficits. Speech is clear. PSYCHIATRIC: pleasant, calm Results - Labs CBC & Chem 7: 10/29/18 04:15 10/29/18 04:15 Laboratory Results - last 24 hr 10/28/18 10/28/18 10/29/18 18:25 19:45 04:15 WBC 8.3 RBC 3.89 L Hgb 12.4 L Hct 36.3 L MCV 93.5 MCH 32.0 MCHC 34.2 RDW 14.7 Plt Count 159 MPV 7.1 Neut % (Auto) 67.7 Lymph % (Auto) 18.9 [place] % (Auto) 11.0 H Eos % (Auto) 2.0 Baso % (Auto) 0.4 Neut # (Auto) 5.6 Lymph # (Auto) 1.6 [place] # (Auto) 0.9 Eos # (Auto) 0.2 Baso # (Auto) 0.0 WBC Differential . Differential Comment Auto diff final Sodium Potassium Chloride Carbon Dioxide Anion Gap BUN Creatinine Estimated GFR POC Glucose 166 H Random Glucose Calcium Phosphorus Magnesium Total Bilirubin AST ALT Alkaline Phosphatase Total Protein Albumin Phenytoin 18.9 Valproic Acid Phenobarbital 5.0 L 10/29/18 10/29/18 04:15 06:39 WBC RBC Hgb Hct MCV MCH MCHC RDW Plt Count MPV Neut % (Auto) Lymph % (Auto) [place] % (Auto) Eos % (Auto) Baso % (Auto) Neut # (Auto) Lymph # (Auto) [place] # (Auto) Eos # (Auto) Baso # (Auto) WBC Differential Differential Comment Sodium 139 Potassium 4.3 Chloride 107 Carbon Dioxide 21.9 Anion Gap 10 BUN 14 Creatinine 1.00 Estimated GFR 89 POC Glucose 112 H Random Glucose 111 H Calcium 8.5 Phosphorus 2.6 Magnesium 2.0 Total Bilirubin 0.5 AST 21 ALT 24 Alkaline Phosphatase 70 Total Protein 6.4 Albumin 3.1 L Phenytoin Valproic Acid 35 L Phenobarbital Assessment and Plan - Plan 73-year-old male admitted as a stroke alert, had a seizure in the emergency room. Acute change in mental status likely secondary to seizure. History of left parietal occipital craniotomy for left [employer]OTE [employer] CVA with left REMOTE C[employer]ERS/P- comm aneurysm clipping Hypertensive encephalopathy Seizure disorder NOS CT brain revealed presence of left posterior occipital craniotomy. Right frontal anterior ventriculostomy deck for more site questionable. Signs of left occipital encephalomalacia. Phenytoin level was 10. On 250 mg twice daily at home. This was resumed. Started on phenobarbital 60 mg every 8 hours and divalproex 5 mg twice daily per neurology Phenytoin level 18.5, phenobarbital level 5, valproic acid 35 EEG abnormal, sharp wave activity over left hemisphere. Unable to do MRI due to prior aneurysm clippings Okay to discharge per neurology on phenobarbital and Dilantin. No driving, no operating any machinery, no swimming. Hypertensive emergency Elevated troponin Mild AR Patient not on any antihypertensives at home Patient started on Norvasc, blood pressure improved. 2D echo done, EF 55-60%, wall thickness measured at the upper limits. Mild aortic valve regurgitation Troponin mildly elevated, no evidence of ACS. Normocytic anemia H&H stable, no need for transfusion. GI -pantoprazole DVT-SCD/holding pharmacologic prophylaxis in light of seizures Physical therapy evaluated, no need for PT at home Patient stable, no further seizures. Okay to DC per neurology No need for PT Discharge home today, recommended he follow-up with PCP in 1 week Heart healthy diet No driving, no swimming, no operating any machinery. Code Status: Full code Discussed Condition With: RN, pt, Dr. Casillas, Dr. Garcia Discharge Planning: Discharge home today
--- NOTE | 2018-10-30 08:34 | P.DS ---
Date of admission: 10/27/18 14:56 Primary care physician: UNKNOWN Attending physician on discharge: Anthony Casillas Anticipated date of discharge: 10/29/18 Brief History from admission: This is a 73-year-old AA male. Date of admission 10/27/2018. 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 Patient is currently on Dilantin 240 mg twice daily. Patient presented to [facility] [employer] from [facility] as a stroke alert. Today, the patient was at [facility] [employer] when he suddenly developed confusion, altered mental status, and appeared to have difficulty ambulating. EMS called a stroke alert in the field. Upon arrival the patient was awake, alert, and oriented. The patient denied any complaints including weakness or numbness. The patient appeared to have slight difficulty comprehending commands, but his stroke scale was 0. The patient does have a previous history of previous left P com/JAVA DESIGNER aneurysm clipping. The patient denies any headache, chest pain, shortness of breath, nausea, vomiting, or abdominal pain. The patient denies any difficulty with his speech and denies any weakness or numbness of the upper or lower extremities. Patient does note a history of seizures for which he takes Dilantin. CT brain revealed signs of a left posterior occipital craniotomy with encephalomalacia involving the left occipital region. Encephalomalacia in the left paramedial tentorium. Right frontal region reveals a slight of possible prior ventriculostomy. No signs of acute CVA. Patient was noted to be quite hypertensive with a systolic blood pressure in the 240s. Subjective left-sided which patient had a witnessed seizure in the ED which resolved on its own. Patient is chronically on fosphenytoin level was 10. Patient was started on nicardipine drip and his confusion is improved. NIH score is still 0. 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 Patient is currently on Dilantin 240 mg twice daily. Patient presented to [facility] today from [facility] as a stroke alert. Patient was at [facility]note 3] consuming hamburgers when he suddenly developed confusion , altered mental status, and appeared to have difficulty ambulating. EMS called a stroke alert in the field. Upon arrival the patient was awake, alert, and oriented. The patient denied any complaints including weakness or numbness. The patient appeared to have slight difficulty comprehending commands , but his stroke scale was 0. The patient did have a previous history of previous left P com/JAVA DESIGNER aneurysm clipping. The patient denied any headache, chest pain, shortness of breath, nausea, vomiting, or abdominal pain. The patient denied any difficulty with his speech and denied any weakness or numbness of the upper or lower extremities. Patient did note a history of seizures for which he takes Dilantin. CT brain revealed signs of a left posterior occipital craniotomy with encephalomalacia involving the left occipital region. Encephalomalacia in the left paramedial tentorium. Right frontal region reveals a slight of possible prior ventriculostomy. No signs of acute CVA. Patient was noted to be quite hypertensive with a systolic blood pressure in the 240s. Subjective left-sided which patient had a witnessed seizure in the ED which resolved on its own. Patient is chronically on fosphenytoin, level was 10. Patient was started on nicardipine drip and his confusion is improved. Initially he was admitted to the ICU. Neurology consulted. Depakote and Phenobarb added. Pt. was not on antihypertensives at home. He was started on Norvasc, his BP was improved. He was transferred to hospitalist services and to 5th floor. He had no further seizures, bp improved. Neurology cleared for dc and to continue Dilantin and Depakote. Apparently pt. had missed morning Dilantin the day of admission. Dilantin level came up to 18.5. EEG was abnormal. Pt. was educated on compliance , he verbalized understanding. Pt. was discharged home in stable condition. - Time Spent with Patient Total time spent providing and/or coordinating discharge services: 45 minutes Greater than 30 minutes - Quality: VTE Deep Vein Thrombosis/Pulmonary Embolism Present on Admission: No Exam Vital signs: Vital Signs 10/29/18 12:00 10/29/18 16:00 10/29/18 16:48 Temperature 98.4 F 98.3 F 98.3 F Pulse Rate 84 83 83 Respiratory Rate 20 20 20 Blood Pressure 183/86 H 151/88 H 151/88 H Pulse Oximetry 100 100 100 Intake & Output 10/29/18 10/30/18 10/30/18 18:59 06:59 18:59 Other: Date of Last Bowel Movement 10/28/18 Results Procedures completed during hospitalization: none - Impressions ITS Impressions Chest X-Ray 10/27/18 09:40 CONCLUSION: Mild chronic appearing interstitial changes stable compared to prior exam. Head CT 10/27/18 09:40 CONCLUSION: No definite acute intracranial findings. Report was called by [Yuni to Lyly at [id number] Discharge Plan - Discharge Disposition Patient Disposition: Discharge Home - Discharge Condition Condition: Good - Discharge Order Discharge Orders: Discharge Order (Routine); Ordered 10/29/18 Ordered By: Erin Diana - Discharge Details Anticipated Discharge Date: 10/29/18 - Physicians Team Primary Care Provider: UNKNOWN, Attending Provider: Demarcus Foley Other Providers: Andrew Garcia MD ; [employer],Insurance ; Anthony Casillas MD
== END 2018-10-29 17:46 | disposition home or self-care (01) ==
LOC: NEPE 09:34 → NEDA 14:56 → HIMC 21:45 → N05 10-28 15:17
PROVIDERS: ADMIT Internal Medicine Critical Care Medicine; ATTEND Internal Medicine Critical Care Medicine